=== PATIENT | male | born 1965 | race Caucasian/White ===

== ENCOUNTER 2017-04-06 11:39 | Emergency (ER) | payer MEDICARE, MEDICAID ==
[~2017-04-06] VITALS: Ht 185.4 cm; Wt 77.3 kg
[~2017-04-06 11:39] MED LIST: BUPR100T6 PO
[2017-04-06 11:53] VITALS: BP 154/99; PULSE 70; RESP 15; O2SAT 100
--- NOTE | 2017-04-06 11:58 | ED.REPORT ---
HPI-Abd Pain M 40 and Over Date of Service Apr 06, 2017 ED Provider: 51 y/o male with no pertinent hx presents to the ED complaining of sudden, sharp and non-radiating right flank pain, onset last night. The pt denies any trauma to the back, nausea, vomiting, fever and hematuria. He has never experienced similar sx before. Nursing Notes Stated Complaint: SEVERE ABDOMINAL PAIN Chief Complaint: Male Abdominal Pain Nursing Notes Reviewed: Yes Allergies: Coded Allergies: No Known Allergies (Verified , 02/07/15) Scheduled Fluoxetine (Prozac) 10 Mg Capsule 10 MG PO DAILY Lidocaine (Lidoderm) 700 Mg Adh..patch 1 PATCH TP UD Scheduled PRN Cyclobenzaprine (Cyclobenzaprine) 10 Mg Tablet 10 MG PO BID PRN PRN Spasm Naproxen (Naprosyn) 500 Mg Tablet 500 MG PO BID PRN PRN For Pain General Time Seen by MD: 11:57 Chief Complaint Flank pain right Hx Obtained From: Patient Arrived By: Walk-in Sudden in Onset?: Yes Onset Occurred: Yesterday Symptom Duration: Since onset Progression since Onset: Constant Location: : Flank right Quality: Sharp Radiation: : Does not radiate Severity: Current: Moderate Severity: Maximum: Moderate Associated with: Denies: Chest pain, Constipation, Diarrhea, Dysuria, Fever, Hematuria, Urinary frequency, Urinary retention, Urinary tract symptoms, Vomiting Pertinent Negative: Pt denies other symptoms Recent Healthcare: No recent doctor visit Similar Sx Previous: No Risk Factors )( AAA Risk Stratification Risk factors reviewed CAD Risk Stratification Amphetamine Risk factors reviewed TAD Risk Stratification Risk factors reviewed Past Medical History Past Medical History MRSA Cellulitis Hx. of opioid dependence Methaphetamine use disorder Past Surgical History Neck surgery Smoking History Current Every Day Smoker Social History Alcohol Use: Denies alcohol use Drug Use: Meth, Other Other Social History: Local resident Ambulatory Status Independent Review of Systems Constitutional: Denies: Chills, Fever Respiratory: Denies: Shortness of breath Cardiovascular: Denies: Chest pain GI: Denies: Abdominal pain Male: Reports Flank pain Complete sys rev & neg: except as marked. Physical Exam Initial Vital Signs Vital Signs (First) Date Time Temp Pulse Resp B/P Pulse Ox O2 Delivery O2 Flow Rate FiO2 04/06/17 11:53 36.6 70 15 154/99 100 Room Air Initial VS: Reviewed General/Constitutional: Awake, Alert, Well hydrated, Not toxic appearing Distress / Hydration: Positive: Distress mild Appearance / Presentation: Positive: Appears older than age Respiratory / Chest: Breath sounds NL, Breath sounds = bilat, No respiratory distress Cardiovascular: Heart rate NL, Regular rhythm, Heart sounds NL Abdomen: Soft, Non-tender, No rebound, BS normoactive Flank / Spine / Paraspinal: Positive: Flank tender R, Negative: Lumbar paraspinal tend..., Lumbar spine tender... ENT: Airway patent, Mucous membranes moist Neck: Supple, No adenopathy Interpretation & Diagnostics Lab Results Interpretation Result Diagram: 04/06/17 1207 04/06/17 1207 Test 04/06/17 12:00 04/06/17 12:07 Urine Color Yellow (YELLOW) Urine Appearance Clear (CLEAR,HAZY) Urine pH 6.0 (5.0-8.0) Urine Specific Anthony 1.025 (1.003-1.035) Urine Protein 30mg/dL (NEG,TRACE) Urine Glucose (UA) Negativemg/dL (NEGATIVE) Urine Ketones 15mg/dL (NEGATIVE) Urine Occult Blood Negative (NEGATIVE) Urine Nitrite Negative (NEGATIVE) Urine Bilirubin Negative (NEGATIVE) Urine Urobilinogen Normalmg/dL (NORMAL) Urine Leukocyte Esterase Negative (NEGATIVE) Urine RBC 3-10/hpf (0-2) Urine WBC 0-5/hpf (0-5) Urine Epithelial Cells Occasional/hpf (NONE-MOD) Urine Crystals None seen (NONE SEEN) Urine Bacteria Few/hpf (NONE-FEW) Urine Hyaline Casts None/lpf (NONE) Urine Granular Casts None seen (NONE SEEN) Urine Waxy Casts None seen (NONE SEEN) Urine Red Blood Cell Casts None seen (NONE SEEN) Urine White Blood Cell Casts None seen (NONE SEEN) Urine Mucus Present (None Seen) Urine Trichomonas None seen (NONE SEEN) Urine Yeast None (NONE SEEN) Urinalysis Comment None Urine Culture Reflexed Not indicated White Blood Count 10.7th/mm3 (3.8-10.1) Red Blood Count 4.14mil/mm3 (4.40-5.80) Hemoglobin 11.2g/dL (13.8-17.2) Hematocrit 34.7% (41.0-50.0) Mean Corpuscular Volume 83.8fL (81-100) Mean Corpuscular Hemoglobin 27.1pg (27.0-35.0) Mean Corpuscular Hemoglobin Concent 32.3% (32.0-37.0) Red Cell Distribution Width 14.0% (12.3-15.4) Platelet Count 240bil/L (150-400) Neutrophils (%) (Auto) 72.9% (40-74) Lymphocytes (%) (Auto) 16.0% (14-46) Monocytes (%) (Auto) 10.1% (4-12) Eosinophils (%) (Auto) 0.7% (0-5) Basophils (%) (Auto) 0.1% (0-3) Sodium Level 139mEq/L (134-144) Potassium Level 4.1mEq/L (3.5-5.2) Chloride Level 104mEq/L (97-108) Carbon Dioxide Level 23mmol/L (18-29) Blood Urea Nitrogen 20mg/dL (6-24) Creatinine 0.81mg/dL (0.76-1.27) Estimat Glomerular Filtration Rate 107mL/min (>59) Glucose Level 110mg/dL (60-99) Calcium Level 9.3mg/dL (8.5-10.1) Total Bilirubin 0.3mg/dL (0.0-1.2) Aspartate Amino Transf (AST/SGOT) 51U/L (0-50) Alanine Aminotransferase (ALT/SGPT) 26U/L (0-44) Alkaline Phosphatase 75U/L (25-150) Total Protein 8.2g/dL (6.4-8.4) Albumin 4.1g/dL (3.4-5.0) CT Abd / Pelvis Interpretation Patient Name: BERNY YOUNG MR#: [id number] [place] [facility] [place] Phys: Bhavik Gutierrez PAC Date of Service: 04/06/17 1204 PROCEDURE: CT KUB ([id number]) INDICATIONS: R flank pain TECHNIQUE: Noncontrast 5 mm thick sections acquired from the diaphragms to the symphysis. 5 mm thick coronal and sagittal reformats were then performed. For radiation dose reduction, the following was used: automated exposure control, adjustment of mA and/or kV according to patient size. COMPARISON: None. FINDINGS: Image quality: Excellent. Lung bases: There is subcentimeter ill-defined groundglass nodularity seen in the left lower lobe, image 5 series 3 which is most likely postinflammatory although technically indeterminate. Heart size is normal. Urinary system: Both kidneys are normal in size. No kidney stones. No hydronephrosis or perinephric fat stranding. Both ureters appear non-dilated throughout their expected courses. Bladder wall thickness is normal; no calcified bladder stones. Other solid organs: Liver and spleen are normal in size. Gallbladder negative. Pancreas is normal in contours. No adrenal nodules. Peritoneum and bowel: Unenhanced bowel loops demonstrate normal wall thickness and caliber. No free fluid or air. The appendix appears normal. The rectum is grossly unremarkable. No evidence of acute diverticulitis. Nodes and vessels: No retroperitoneal or mesenteric adenopathy by size criteria. Aorta and inferior vena cava are normal in caliber. Abdominal wall: No ventral hernias. Pelvis: No free pelvic fluid. No inguinal hernias or adenopathy. Bones: No suspicious bony lesions. No vertebral body compression fractures. IMPRESSION: Overall, no acute abnormality to explain right-sided flank pain. No urolithiasis or evidence of urinary obstruction. Normal appendix. Dictated by: Poli Vasquez M.D. on 04/06/2017 at 13:05 Approved by: Poli Vasquez M.D. on 04/06/2017 at 13:10 Re-Eval/Medical Decision Med Decision/Clinical Course Pt's pain slightly improved with IV Toradol. Labs and CT without any significant findings. Pain is more likely musculoskeletal. Discussed with Pt. s/s for which to return to ED, and need to f/u with PCP on 04/09. He acknowledged understanding of plan. Case discussed with Dr. Ram who concurs with plan at present. Counseled Regarding: Diagnosis, Lab results, Need for follow-up, When/why to return to ED Discharge & Departure Primary Impression: Right flank pain Disposition: Home Vital Signs - All Vital Signs Date Time Temp Pulse Resp B/P Pulse Ox O2 Delivery O2 Flow Rate FiO2 04/06/17 13:41 36.7 66 18 149/89 100 Room Air 04/06/17 11:53 36.6 70 15 154/99 100 Room Air Patient Instructions: Back Pain (ED) Additional Instructions: Rest, local heat, take meds as prescribed. Follow up with your doctor on Sunday , 04/09. Return to ER if anything worsens. Referrals: Ashleigh Arizmendi MD EDSupervising Provider for APC: Hodan Ram MD copies to: Ashleigh Arizmendi MD, Christopher R PAC Apr 06, 2017 11:58 Felipe Culver Apr 06, 2017 12:28
[2017-04-06] MEDS ORDERED: 0.9% Sodium Chloride 1,000 ML IV ONE (12:04)
[2017-04-06] MEDS ORDERED: FLUO10CA30 PO (12:31)
[2017-04-06 12:35] LABS: Mean Corpuscular Hemoglobin 27.1 pg (27.0-35.0)
[2017-04-06 12:38] LABS: APPEARANCE,URINE CLEAR (CLEAR,HAZY); COLOR,URINE YELLOW (YELLOW)
[2017-04-06 12:39] LABS: OCCULT BLOOD,URINE NEGATIVE (NEGATIVE); UROBILINOGEN,URINE NORMAL (NORMAL)
[2017-04-06 12:57] LABS: BASOPHILS % (AUTO) 0.1 % (0-3); EOSINOPHILS % (AUTO) 0.7 % (0-5); MONOCYTES % (AUTO) 10.1 % (4-12); Mean Corpuscular Volume 83.8 fL (81-100); NEUTROPHILS % (AUTO) 72.9 % (40-74); Platelet Count 240 bil/L (150-400)
--- NOTE | 2017-04-06 13:11 | DRSVH ---
PROCEDURE: CT KUB ([id number]) INDICATIONS: R flank pain TECHNIQUE: Noncontrast 5 mm thick sections acquired from the diaphragms to the symphysis. 5 mm thick coronal an d sagittal reformats were then performed. For radiation dose reduction, the following was used: aut omated exposure control, adjustment of mA and/or kV according to patient size. COMPARISON: None. FINDINGS: Image quality: Excellent. Lung bases: There is subcentimeter ill-defined groundglass nodularity seen in the left lower lobe, im age 5 series 3 which is most likely postinflammatory although technically indeterminate. Heart size is normal. Urinary system: Both kidneys are normal in size. No kidney stones. No hydronephrosis or perinephri c fat stranding. Both ureters appear non-dilated throughout their expected courses. Bladder wall th ickness is normal; no calcified bladder stones. Other solid organs: Liver and spleen are normal in size. Gallbladder negative. Pancreas is normal in contours. No adrenal nodules. Peritoneum and bowel: Unenhanced bowel loops demonstrate normal wall thickness and caliber. No free fluid or air. The appendix appears normal. The rectum is grossly unremarkable. No evidence of acute diverticulitis. Nodes and vessels: No retroperitoneal or mesenteric adenopathy by size criteria. Aorta and inferior vena cava are normal in caliber. Abdominal wall: No ventral hernias. Pelvis: No free pelvic fluid. No inguinal hernias or adenopathy. Bones: No suspicious bony lesions. No vertebral body compression fractures. IMPRESSION: Overall, no acute abnormality to explain right-sided flank pain. No urolithiasis or evidence of urina ry obstruction. Normal appendix. Dictated by: Poli Vasquez M.D. on 04/06/2017 at 13:05 Approved by: Poli Vasquez M.D. on 04/06/2017 at 13:10
[2017-04-06 13:41] VITALS: BP 149/89; PULSE 66; RESP 18; O2SAT 100
[2017-04-06] MEDS ORDERED: NAPR500T PO (14:00)
[2017-04-06] MEDS ORDERED: LIDO700A6 TP (14:00)
[2017-04-06] MEDS ORDERED: CYCL10TA9 PO (14:00)
== END 2017-04-06 14:07 | disposition home or self-care (01) ==
LOC: SED 11:39
DX: R10.9 Unspecified abdominal pain (principal); F17.200 Nicotine dependence, unspecified, uncomplicated; Z79.899 Other long term (current) drug therapy
CPT/HCPCS: 36415; 74176; 80053; 81000; 85025; 96361; 96374; 99285; J1885; J7030

== ENCOUNTER 2017-04-07 04:10 | Emergency (ER) | payer MEDICARE, MEDICAID ==
[~2017-04-07] VITALS: Ht 185.4 cm; Wt 77.3 kg
[~2017-04-07 04:10] MED LIST changes: +CYCL10TA9 PO; +FLUO10CA30 PO; +LIDO700A6 TP; +NAPR500T PO
[2017-04-07 04:14] VITALS: BP 155/79; PULSE 61; RESP 16; O2SAT 100
[2017-04-07 06:18] VITALS: BP 144/88; PULSE 58; RESP 18; O2SAT 100
--- NOTE | 2017-04-07 06:20 | ED.REPORT ---
HPI-Back Pain 40 and Over Date of Service Apr 07, 2017 ED Provider: Derrick Arnett MD Patient is a 51 year old male with a history of hepatitis C, cellulitis, MRSA and opioid dependence who presents to the ED complaining of back pain that began 2 nights ago. He denies any recent injury. The pain is exacerbated by movement and bending. He describes a sharp pain that radiates to his abdomen. Patient was seen in the ED on 04/06 for right sided back pain and was discharged in good condition after receiving IV Toradol and an unremarkable CT KUB. UA was negative for blood and WBC was 10.7. Patient states that he was unable to fill the cyclobenzaprine, naproxen or lidocaine patch last night and presents to the ED this morning because of uncontrollable pain. He denies any weakness in his legs, numbness in the groin or bowel/bladder incontinence. Patient denies any previous back surgeries. Nursing Notes Stated Complaint: LOW BACK PAIN Chief Complaint: Back Pain or Injury Nursing Notes Reviewed: Yes Allergies: Coded Allergies: No Known Allergies (Verified , 02/07/15) Scheduled Fluoxetine (Prozac) 10 Mg Capsule 10 MG PO DAILY Lidocaine (Lidoderm) 700 Mg Adh..patch 1 PATCH TP UD Scheduled PRN Cyclobenzaprine (Cyclobenzaprine) 10 Mg Tablet 10 MG PO BID PRN PRN Spasm Naproxen (Naprosyn) 500 Mg Tablet 500 MG PO BID PRN PRN For Pain General Time Seen by MD: 06:13 Chief Complaint Back pain Hx Obtained From: Patient Arrived By: Walk-in Sudden in Onset?: No Onset Occurred: 1 day ago Symptom Duration: Since onset Location: : Spinal lumbar area Quality: Painful, Sharp Radiation: : Abdomen Severity: Current: Moderate Severity: Maximum: Moderate Associated with: Denies: Incontinence bladder, Incontinence bowel, Numbness both low ext, Weakness both lower ext Pertinent Negative: Pt denies other symptoms Recent Healthcare: No recent hospitalization, Recent doctor visit Risk Factors )( AAA Risk Stratification Risk factors reviewed )( TAD Risk Stratification Risk factors reviewed Past Medical History Past Medical History MRSA Hepititis C Depression Cellulitis Hx. of opioid dependence Methaphetamine use disorder Past Surgical History Neck surgery Smoking History Current Every Day Smoker Social History Alcohol Use: Denies alcohol use Drug Use: Meth, THC, Other Other Social History: Local resident Ambulatory Status Independent Review of Systems Male: Denies Incontinence Musculoskeletal: Reports: Back pain (Lower) Neurologic: Denies: Numbness, Weakness Complete sys rev & neg: except as marked. Physical Exam Initial Vital Signs Vital Signs (First) Date Time Temp Pulse Resp B/P Pulse Ox O2 Delivery O2 Flow Rate FiO2 04/07/17 04:14 36.9 61 16 155/79 100 Room Air Initial VS: Reviewed Head / Eyes: Atraumatic, Normocephalic, PERRL Neck: Supple, Non-tender, Full range of motion Extremities: Vascular intact, Neuro intact, No swelling, No tenderness Skin: Warm, Dry, No cyanosis Psychiatric: Mood/affect normal, Behavior normal, Normal thought content General/Constitutional: Awake, Alert Respiratory / Chest: Atraumatic, Breath sounds NL, Breath sounds = bilat, No respiratory distress Cardiovascular: Heart rate NL, Regular rhythm, Heart sounds NL, No gallop, No murmurs, No rubs Abdomen: Atraumatic, Soft, Non-tender, No distention Back: Atraumatic, Inspection NL, No midline vertebral tend, No paraspinal tenderness, No CVA tenderness BACK: Patient reports diffuse paraspinal lumbar pain Strength and sensation intact No step off's Neurologic: Oriented X3, Speech NL, No motor deficits, No sensory deficits, CN II - XII intact, Reflexes equal bilat Re-Eval/Medical Decision Med Decision/Clinical Course In summary, the patient is a 51-year-old male with past medical history significant for back pain, who presents with acute back pain exacerbation. He was just recently seen here and evaluated in this emergency department at which time he had a CT scan was unremarkable. He was prescribed NSAIDs and muscle relaxants however he has not filled these prescriptions due to insurance issues. Our primary and secondary assessment reveals an awake, alert patient in no acute distress. Hemodynamically stable and afebrile. Exam reveals normal neurologic exam of the lower extremities. Given this immunocompetent, afebrile, patient's history and exam, suspect muscle strain or spasm. No concerning signs or symptoms suggestive of cauda equina, cord compression, epidural abscess or other neurologic emergency. History not suggestive of referred intraabdominal pathology or vascular emergency. There is no history of significant trauma, fever, incontinence, unexplained weight loss, cancer history, long-term steroid use or IV drug use. And given the patient's young age, I do not feel additional imaging is warranted at this time. Given the patient's workup, feel they are safe for discharge with conservative management. The patient was given Toradol and a lidocaine patch while here in the ER. He will attempt to fill his prescriptions later today. Have discussed with the patient results of workup, indications for return including: motor weakness in the lower extremities and/or bowel or bladder incontinence. Also emphasized the need for PCP follow up. They understand and agree with the plan. Re-Evaluation/Progress : Time of Eval: 06:29 Re-Evaluation/Progress Note: Patient is rechecked. His pain has improved. Discussed intended treatment plan. All of the pateint's questions are addressed. He understands and agrees with the treatment plan. Counseled Regarding: Diagnosis, Need for follow-up, When/why to return to ED Discharge & Departure Impression: Primary Impression: Low back pain Chronicity: acute Back pain laterality: bilateral Sciatica presence: without sciatica Qualified Code: M54.5 - Low back pain Additional Impression: Noncompliance with medication regimen Disposition: Home Discharge Condition All VS Reviewed: Yes Condition: Improved Patient Instructions: Acute Low Back Pain (ED) Additional Instructions: Thank you for seeking care at emergency room. Our primary goal today in the ED was to evaluate you for any life-threatening conditions. Your evaluation was reassuring. Make sure to have your prescriptions filled as soon as possible,. You should follow-up with your primary doctor in the next week. You should return to the ED immediately if you develop worsening back pain, incontinence, fever, chills, weakness or any other concerning signs or symptoms. Thank you for seeking care at emergency room. Referrals: Ashleigh Arizmendi MD (PCP) Sonny Attestation Portions of this note were transcribed by Teri Howard. I, Dr. Arnett personally performed the history, physical exam and medical decision-making; I reviewed and confirmed the accuracy of the information in the transcribed note. Signed by: Sonny Carballo, 04/07/17 0647. copies to: Ashleigh Arizmendi MD, Beck O MD Apr 07, 2017 06:20 TERI HOWARD Apr 07, 2017 06:29
[2017-04-07] MEDS ORDERED: Lidocaine Topical 5% Patch TOPICAL SCH (06:35)
[2017-04-07 06:48] VITALS: BP 164/87; PULSE 58; RESP 16; O2SAT 99
[2017-04-07] MEDS ORDERED: Lidocaine Topical 5% Patch TOPICAL ONE (06:53)
== END 2017-04-07 07:02 | disposition home or self-care (01) ==
LOC: SED 04:10
DX: M54.5 Low back pain (principal); F32.9 Major depressive disorder, single episode, unspecified; F17.200 Nicotine dependence, unspecified, uncomplicated; Z91.14 Patient's other noncompliance with medication regimen; Z86.19 Personal history of other infectious and parasitic diseases; Z86.14 Personal history of Methicillin resistant Staphylococcus aureus infection
CPT/HCPCS: 96372; 99283; J1885

== ENCOUNTER 2017-04-09 05:39 | Emergency (ER) | payer MEDICAID, MEDICARE ==
[~2017-04-09 05:39] MED LIST changes: -BUPR100T6 PO
[2017-04-09 05:49] VITALS: BP 118/75; PULSE 97; RESP 20; O2SAT 99
--- NOTE | 2017-04-09 06:05 | ED.REPORT ---
HPI-Back Pain 40 and Over Date of Service Apr 09, 2017 ED Provider: Ariel Alva MD Pt is a 51 year old male with a history of slipped disc, hepatitis C, cellulitis , MRSA and opioid dependence who presents to the ED complaining of worsening chronic back pain onset 3 days ago. He c/o associated abdominal pain, subjective fever, difficulty walking secondary to the pain, and vomiting. He reports that the pain radiates to the back of his legs bilaterally. Pt denies injury, urinary and bowel incontinence, cough, chest pain, SOB, dysuria, and diarrhea. Pt states that when urinating, "it doesn't feel like I'm getting everything out." He states "I can't do anything" and that he is unable to ambulate to the bathroom. Pt reports that he urinates in a bucket next to his bed. The pt has been taking Naproxen and lidocaine patches without relief. Pt presented to the ED on 04/07/17 with similar symptoms and was diagnosed with low back pain. Nursing Notes Stated Complaint: LOW BACK PAIN Chief Complaint: General Complaint Nursing Notes Reviewed: Yes Allergies: Coded Allergies: No Known Allergies (Verified , 02/07/15) Scheduled Fluoxetine (Prozac) 10 Mg Capsule 10 MG PO DAILY Lidocaine (Lidoderm) 700 Mg Adh..patch 1 PATCH TP UD Scheduled PRN Cyclobenzaprine (Cyclobenzaprine) 10 Mg Tablet 10 MG PO BID PRN PRN Spasm Naproxen (Naprosyn) 500 Mg Tablet 500 MG PO BID PRN PRN For Pain General Time Seen by MD: 06:04 Chief Complaint Back pain Hx Obtained From: Patient Arrived By: Walk-in Sudden in Onset?: No Symptom Duration: Since onset Location: : Generalized Quality: Itching Radiation: : Abdomen: Left leg above knee: Right leg above knee Severity: Current: Moderate Severity: Maximum: Moderate Recent Healthcare: Recent doctor visit Similar Sx Previous: Yes Past Medical History Past Medical History Notes: Dr. Ashleigh Arizmendi, PCP Past Medical History MRSA Hepititis C Cellulitis Hx. of opioid dependence Methaphetamine use disorder Anxiety Slipped disc Denies: Congestive heart failure, Diabetes mellitus, Hypertension Reports: Depression Past Surgical History Neck surgery Reports: Tonsillectomy Smoking History Current Every Day Smoker Social History Alcohol Use: Denies alcohol use Drug Use: Meth, THC, Other Other Social History: , Local resident Ambulatory Status Independent Review of Systems Constitutional: Denies: Fever (subjective) Respiratory: Denies: Non-productive cough, Shortness of breath Cardiovascular: Denies: Chest pain GI: Reports: Abdominal pain, Nausea, Vomiting, Denies: Diarrhea Male: Denies Dysuria, Denies Incontinence (bowel or urinary) Musculoskeletal: Reports: Back pain, Extremity pain Neurologic: Reports: Problem walking (secondary to pain) Complete sys rev & neg: except as marked. Physical Exam Initial Vital Signs Vital Signs (First) Date Time Temp Pulse Resp B/P Pulse Ox O2 Delivery O2 Flow Rate FiO2 04/09/17 05:49 37.4 97 20 118/75 99 Room Air Initial VS: Reviewed Head / Eyes: Atraumatic, Normocephalic Neck: Supple, Full range of motion Skin: Warm, Dry, No cyanosis Psychiatric: Mood/affect normal, Behavior normal General/Constitutional: Awake, Alert, Cooperative Respiratory / Chest: Atraumatic, Breath sounds NL, Breath sounds = bilat Cardiovascular: Heart rate NL, Regular rhythm, Heart sounds NL Abdomen: Atraumatic, Soft RUQ abdominal pain and suprapubic pain. Back: Atraumatic, Full range of motion Neurologic: Oriented X3, Speech NL Lower Extremity / Pelvis / MS: Neurologic intact, Vascular intact Modified straight leg positive on right. Significant pain over right SI joint and sciatic notch pain. Interpretation & Diagnostics Lab Results Interpretation Result Diagram: 04/09/17 0642 04/09/17 0642 Test 04/09/17 06:42 04/09/17 08:23 White Blood Count 21.7th/mm3 (3.8-10.1) Red Blood Count 4.42mil/mm3 (4.40-5.80) Hemoglobin 12.0g/dL (13.8-17.2) Hematocrit 35.9% (41.0-50.0) Mean Corpuscular Volume 81.2fL (81-100) Mean Corpuscular Hemoglobin 27.1pg (27.0-35.0) Mean Corpuscular Hemoglobin Concent 33.4% (32.0-37.0) Red Cell Distribution Width 13.8% (12.3-15.4) Platelet Count 313bil/L (150-400) Neutrophils (%) (Auto) 76% (40-74) Lymphocytes (%) (Auto) 10% (14-46) Monocytes (%) (Auto) 10% (4-12) Eosinophils (%) (Auto) 0% (0-5) Basophils (%) (Auto) 0% (0-3) Band Neutrophils % 4% (1-5) Sodium Level 128mEq/L (134-144) Potassium Level 4.7mEq/L (3.5-5.2) Chloride Level 87mEq/L (97-108) Carbon Dioxide Level 26mmol/L (18-29) Blood Urea Nitrogen 16mg/dL (6-24) Creatinine 0.63mg/dL (0.76-1.27) Estimat Glomerular Filtration Rate 143mL/min (>59) Glucose Level 148mg/dL (60-99) Calcium Level 9.3mg/dL (8.5-10.1) Total Bilirubin 0.6mg/dL (0.0-1.2) Aspartate Amino Transf (AST/SGOT) 29U/L (0-50) Alanine Aminotransferase (ALT/SGPT) 18U/L (0-44) Alkaline Phosphatase 115U/L (25-150) Total Protein 7.9g/dL (6.4-8.4) Albumin 3.7g/dL (3.4-5.0) Urine Color Yellow (YELLOW) Urine Appearance Clear (CLEAR,HAZY) Urine pH 6.0 (5.0-8.0) Urine Specific [place] 1.015 (1.003-1.035) Urine Protein 30mg/dL (NEG,TRACE) Urine Glucose (UA) Negativemg/dL (NEGATIVE) Urine Ketones Tracemg/dL (NEGATIVE) Urine Occult Blood Trace (NEGATIVE) Urine Nitrite Negative (NEGATIVE) Urine Bilirubin Negative (NEGATIVE) Urine Urobilinogen Normalmg/dL (NORMAL) Urine Leukocyte Esterase Negative (NEGATIVE) Urine RBC 3-10/hpf (0-2) Urine WBC 0-5/hpf (0-5) Urine Epithelial Cells Occasional/hpf (NONE-MOD) Urine Crystals None seen (NONE SEEN) Urine Bacteria None/hpf (NONE-FEW) Urine Hyaline Casts Occasional/lpf (NONE) Urine Granular Casts Occasional (NONE SEEN) Urine Waxy Casts None seen (NONE SEEN) Urine Red Blood Cell Casts None seen (NONE SEEN) Urine White Blood Cell Casts None seen (NONE SEEN) Urine Mucus Present (None Seen) Urine Trichomonas None seen (NONE SEEN) Urine Yeast None (NONE SEEN) Urinalysis Comment None Urine Culture Reflexed Not indicated Re-Eval/Medical Decision Med Decision/Clinical Course other than the elevated WBC count, no evidence of infection and an exam completely consistent with a musculoskelital pain. I recommmend close out patient follow-up. 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 Source of Hx: Old records Re-Evaluation/Progress : Time of Eval: 09:02 Re-Evaluation/Progress Note: Pt rechecked. Informed pt of lab results. Informed pt of plan for discharge. Pt understands and agrees with plan for discharge. F/U instructions and RTER warnings given. All questions addressed. Counseled Regarding: Diagnosis, Lab results, Need for follow-up, When/why to return to ED Discharge & Departure Impression: Primary Impression: Back pain Back pain location: low back pain Chronicity: acute Back pain laterality: right Sciatica presence: with sciatica Sciatica laterality: sciatica of right side Qualified Code: M54.41 - Lumbago with sciatica, right side Disposition: Home Discharge Condition All VS Reviewed: Yes Condition: Stable Patient Instructions: Acute Low Back Pain (ED) Additional Instructions: No dangerous cause for your pain was discovered today. I think that your pain is likely from the muscles, joints or connective tissues of the back as opposed to the internal organs. I am moderately concerned about the elevated WBC count and think you should see Dr. Arizmendi in 2-3 days for follow up. Come right back to the ER for fever or worsening symptoms. If you are feeling worse, you may need an MRI with IV contrast to exclude an infection in your spine, but i don't think this very likely at this time given your normal Vital signs and your symptoms which are consistent with more common back pain. For now I recommend that you take ibuprofen 800mg every 8 hours and hydrocodone/ APAP as needed for more severe pain. Referrals: Ashleigh Arizmendi MD (PCP) Ireneibfidel Attestation Portions of this note were transcribed by Yancy Moya. I, Dr. Alva personally performed the history, physical exam and medical decision-making; I reviewed and confirmed the accuracy of the information in the transcribed note. Signed by: Sonny Stein, 04/09/17 and 09:30. copies to: Ashleigh Arizmendi MD, Kirk H MD Apr 09, 2017 06:05 Yancy Hardy Apr 09, 2017 06:33
[2017-04-09] MEDS ORDERED: HYDROcodone-APAP 5-325 mg Tablet PO ONE (06:35)
[2017-04-09 07:00] LABS: EOSINOPHILS % (AUTO) 0 % (0-5); Mean Corpuscular Hemoglobin 27.1 pg (27.0-35.0); Mean Corpuscular Volume 81.2 fL (81-100); Platelet Count 313 bil/L (150-400)
[2017-04-09 08:21] LABS: MONOCYTES % (AUTO) 10 % (4-12); NEUTROPHILS % (AUTO) 76 % (40-74)
[2017-04-09 08:22] LABS: BASOPHILS % (AUTO) 0 % (0-3)
[2017-04-09 08:56] LABS: APPEARANCE,URINE CLEAR (CLEAR,HAZY); COLOR,URINE YELLOW (YELLOW); OCCULT BLOOD,URINE TRACE (NEGATIVE); UROBILINOGEN,URINE NORMAL (NORMAL)
[2017-04-09] MEDS ORDERED: HYDR-4003 PO (09:18)
[2017-04-09 09:24] VITALS: BP 136/78; PULSE 75; RESP 18; O2SAT 100
== END 2017-04-09 09:24 | disposition home or self-care (01) ==
LOC: SED 05:39
DX: M54.41 Lumbago with sciatica, right side (principal); G89.29 Other chronic pain; F41.9 Anxiety disorder, unspecified; F19.10 Other psychoactive substance abuse, uncomplicated; F32.9 Major depressive disorder, single episode, unspecified; Z79.899 Other long term (current) drug therapy
CPT/HCPCS: 36415; 80053; 81000; 85025; 96372; 99284; J1885

== ENCOUNTER 2017-04-11 06:08 | Inpatient (IN) | payer MEDICARE, MEDICAID ==
[~2017-04-11] VITALS: Ht 185.4 cm; Wt 92.7 kg
[~2017-04-11 06:08] MED LIST changes: +HYDR-4003 PO
[2017-04-11 06:10] VITALS: BP 122/78; PULSE 95; RESP 20; O2SAT 97
--- NOTE | 2017-04-11 06:22 | ED.REPORT ---
HPI-Back Pain 40 and Over Date of Service Apr 11, 2017 ED Provider: Phililp Farah DO The pt is a 51 y/o male w/ a hx of Hepatitis C, cellulitis, MRSA, and IV methamphetamine use presenting to the ED complaining of severe pain and swelling in the R lumbar and R gluteal area. He is also experiencing an aching pain in his abdomen, chills, and vomiting. Denies fever, diarrhea, or incontinence. The pt reports last injecting meth yesterday. He has been to the ED three times in the last week for back pain. Nursing Notes Stated Complaint: LOWER BACK PAIN Chief Complaint: Back Pain or Injury Nursing Notes Reviewed: Yes Allergies: Coded Allergies: No Known Allergies (Verified , 02/07/15) Scheduled PRN Hydrocodone-Acetaminophen 5-325 mg (Hydrocodone-Acetaminophen 5-325 mg) 1 Each Tablet 1-2 TABLET PO Q4H PRN PRN For Pain General Time Seen by MD: 06:18 Chief Complaint Back pain Hx Obtained From: Patient Arrived By: Walk-in Sudden in Onset?: Yes Symptom Duration: Since onset Recent Healthcare: No recent hospitalization, Recent doctor visit Similar Sx Previous: Yes Past Medical History Past Medical History Notes: Dr. Ashleigh Arizmendi, PCP Past Medical History MRSA Hepititis C Cellulitis Hx. of opioid dependence Methaphetamine use disorder Anxiety Slipped disc Reports: Depression Past Surgical History Neck surgery Reports: Tonsillectomy Smoking History Current Every Day Smoker Social History Alcohol Use: Denies alcohol use Drug Use: Meth, THC, Other Other Social History: , Local resident Ambulatory Status Independent Review of Systems Constitutional: Reports: Chills, Denies: Fever GI: Reports: Abdominal pain, Vomiting, Denies: Diarrhea Male: Denies Incontinence Musculoskeletal: Reports: Back pain, Joint pain (R hip ), Joint swelling (R hip ) Complete sys rev & neg: except as marked. Physical Exam Initial Vital Signs Vital Signs (First) Date Time Temp Pulse Resp B/P Pulse Ox O2 Delivery O2 Flow Rate FiO2 04/11/17 06:10 37.0 95 20 122/78 97 Room Air Initial VS: Reviewed General/Constitutional: Awake, Alert Distress / Hydration: Positive: Distress moderate Respiratory / Chest: Atraumatic, Breath sounds NL, Breath sounds = bilat Cardiovascular: Heart rate NL, Regular rhythm, Heart sounds NL Abdomen: Atraumatic, Soft, Non-tender Flank / Spine / Paraspinal: Positive: Flank tender R Tenderness of R paralumbar area Neurologic: Oriented X3, Speech NL Neck: Atraumatic, Supple, Full range of motion Lower Extremity / Pelvis / MS: No deformity, Neurologic intact, Vascular intact Right Hip: Positive: ROM reduced... Head / Eyes: Atraumatic, Normocephalic ENT: Atraumatic, Airway patent, Mucous membranes moist Interpretation & Diagnostics Lab Results Interpretation Result Diagram: 04/11/17 0655 04/11/17 0655 Test 04/11/17 06:55 04/11/17 09:31 White Blood Count 36.4th/mm3 (3.8-10.1) Red Blood Count 4.32mil/mm3 (4.40-5.80) Hemoglobin 11.8g/dL (13.8-17.2) Hematocrit 34.7% (41.0-50.0) Mean Corpuscular Volume 80.3fL (81-100) Mean Corpuscular Hemoglobin 27.3pg (27.0-35.0) Mean Corpuscular Hemoglobin Concent 34.0% (32.0-37.0) Red Cell Distribution Width 14.2% (12.3-15.4) Platelet Count 305bil/L (150-400) Neutrophils (%) (Auto) 60% (40-74) Lymphocytes (%) (Auto) 7% (14-46) Monocytes (%) (Auto) 6% (4-12) Eosinophils (%) (Auto) 0% (0-5) Basophils (%) (Auto) 0% (0-3) Band Neutrophils % 27% (1-5) Erythrocyte Sedimentation Rate 48mm/hr (0-15) Sodium Level 132mEq/L (134-144) Potassium Level 4.2mEq/L (3.5-5.2) Chloride Level 90mEq/L (97-108) Carbon Dioxide Level 25mmol/L (18-29) Blood Urea Nitrogen 18mg/dL (6-24) Creatinine 0.84mg/dL (0.76-1.27) Estimat Glomerular Filtration Rate 103mL/min (>59) Glucose Level 123mg/dL (60-99) Calcium Level 8.5mg/dL (8.5-10.1) C-Reactive Protein 32.1mg/dL (0.0-0.5) Procalcitonin 2.62ng/mL (0.00-0.08) Lactic Acid Level 2.0mmol/L (0.4-2.0) CT Abd / Pelvis Interpretation IMPRESSION: 1. Bilateral perinephric stranding suggesting pyelonephritis. No renal stone or hydronephrosis. 2. Mild stranding in the area of the tail of the pancreas, which may be secondary to spread of inflammation/infection from the left kidney or focal pancreatitis. 3. Small right pleural effusion. 4. Trace pericardial effusion. 5. The right gluteus muscle is enlarged and demonstrates low attenuation with somewhat heterogeneous enhancement suggesting myositis. 6. Subcutaneous edema and fluid over right gluteus muscle. There is a small fluid collection over the right greater trochanter which could represent septic greater trochanteric bursal fluid. Ultrasound-guided fluid aspiration may be performed if clinically indicated. 7. Mild hepatomegaly. Dictated by: Amanda Méndez M.D. on 04/11/2017 at 8:31 Approved by: Amanda Méndez M.D. on 04/11/2017 at 8:52 Study type: Abdom CT oral contrast Interpretation / Wet Read by: Interpret - Radiologist Re-Eval/Medical Decision Med Decision/Clinical Course History of IV drug abuse, multiple visits recently for back pain. He does not have bony midline lumbar tenderness, he does localize his pain over the right gluteal area and seems to have pain to palpation of the area. It is visibly swollen. Strongly suspect a deep space infection to the gluteal area. CT shows signs of infection, radiology attempted to perform ultrasound-guided needle aspiration but stated there was no significant fluid collection to drain. We will plan to admit. Given history of IV drug abuse in the location for infection, 3 sets of blood cultures were obtained as this may represent endocarditis. Patient will be admitted. Source of Hx: Old records Re-Evaluation/Progress : Time of Eval: 08:53 Re-Evaluation/Progress Note: Pt rechecked. Discussed CT results and plan for US. Consultation #1: Referral / Consult Name: Juna Vega MD Call Returned at: 09:07 Note: Discussed pt's case. recommends starting antibiotics as soon as possible, agrees with scheduling a guided aspiration. Consultation #2: Referral / Consult Name: Lisa Downey MD Consulted With: Hospitalist Call Returned at: 09:29 Tap Builder: Will see patient, Agrees with eval, Agrees with plan, Accepts admit Consultation #3: Referral / Consult Name: Amanda Méndez MD, PhD Call Returned at: 10:03 Note: Discussed imaging results w/ Dr. Méndez, radiologist. They report being unable to tap the hip joint or gluteal area and that there was no drainable fluid collection. Based on US and CT they dont see significant fluid in the joint capsule. Does not see benefit in obtaining MRI at this time. Counseled Regarding: Diagnosis, Lab results, Need for admission Discharge & Departure Impression: Primary Impression: Gluteal abscess Additional Impression: Sepsis Disposition: ADMITTED TO HOSPITAL Discharge Condition All VS Reviewed: Yes Condition: Stable Referrals: Ashleigh Arizmendi MD (PCP) Crit Care Except Billable Proc Time Spent: 75-104 minutes Services Performed: Patient management by me, Time spent at bedside, Reviewing test results, Reviewing imaging, Discussing patient care, Documentation in record Critical Care Notes: See MDM Scribe Attestation Portions of this note were transcribed by Marshall Kenyon. I, Dr. Echols personally performed the history, physical exam and medical decision-making; I reviewed and confirmed the accuracy of the information in the transcribed note. Signed by : Sonny Moore, 04/11/17 and 0130. copies to: Ashleigh Arizmendi MD, Timothy S DO Apr 11, 2017 06:22 Marshall Kenyon Apr 11, 2017 07:02
[2017-04-11] MEDS ORDERED: 0.9% Sodium Chloride 1,000 ML IV SCH ×2 (07:15→09:29)
[2017-04-11 07:31] LABS: Mean Corpuscular Hemoglobin 27.3 pg (27.0-35.0); Mean Corpuscular Volume 80.3 fL (81-100); Platelet Count 305 bil/L (150-400)
[2017-04-11] MEDS ORDERED: Piperacillin-Tazo 3.375 Gm Inj 3.375 GM in Dextrose 5% Minibag Plus 50 ML IV ONE (08:40)
--- NOTE | 2017-04-11 08:54 | DRSVH ---
PROCEDURE: CT ABDOMEN AND PELVIS WITH CONTRAST ([id number]) INDICATIONS: pain, leukocytosis, gluteal/lumbar pain TECHNIQUE: After the administration of intravenous contrast, 5 mm thick sections acquired from the diaphragm to the symphysis. 5 mm coronal and sagittal reformats were acquired. For radiation dose reduction, the following was used: automated exposure control, adjustment of mA and/or kV according to patient siz e. COMPARISON: [facility], CT, ABD/PELVIS W/CON (PNL), 02/18/2002, 11:02. [facility], CT, CT KUB, 04/06/2017, 12:54. [facility], CT, ABD/PELVIS W/CON (PNL), 02/23/2015, 6:59. FINDINGS: Image quality: Excellent. ABDOMEN: Lung bases: There is a small right pleural effusion with right basilar atelectasis. A 7 mm subpleura l nodule in the left lung base is likely small round atelectasis. Heart size is normal. Trace perica rdial effusion. Solid organs: Liver is mildly enlarged measuring 20.3 cm. Spleen is normal in size and enhancement. Gallbladder is normal. Biliary system is non dilated. Mild stranding around the pancreatic tail. No pancreatic duct dilation. No pancreatic calcification or pseudocyst. No adrenal nodules. Kidneys de monstrate normal size and enhancement, without hydronephrosis. There is mild perinephric stranding b ilaterally. Peritoneum and bowel: Bowel loops demonstrate normal wall thickness and caliber. No free fluid or a ir. Nodes and vessels: No retroperitoneal or mesenteric adenopathy by size criteria. Aorta and inferior vena cava are normal in size. Miscellaneous: No ventral hernias. PELVIS: Genitourinary: Bladder wall thickness is normal. Miscellaneous: No inguinal hernias or adenopathy. The right gluteus maximum muscle is enlarged and demonstrates slightly lower attenuation and heterogeneous enhancement. No intramuscular fluid collect ion. There is subcutaneous fluid and edema in the right upper thigh without enhancement. A small pock et of fluid is seen adjacent to the right greater trochanter No drainable abscess identified. Bones: No suspicious bony lesions. No vertebral body compression fractures. IMPRESSION: 1. Bilateral perinephric stranding suggesting pyelonephritis. No renal stone or hydronephrosis. 2. Mild stranding in the area of the tail of the pancreas, which may be secondary to spread of inflam mation/infection from the left kidney or focal pancreatitis. 3. Small right pleural effusion. 4. Trace pericardial effusion. 5. The right gluteus muscle is enlarged and demonstrates low attenuation with somewhat heterogeneous enhancement suggesting myositis. 6. Subcutaneous edema and fluid over right gluteus muscle. There is a small fluid collection over the right greater trochanter which could represent septic greater trochanteric bursal fluid. Ultrasound- guided fluid aspiration may be performed if clinically indicated. 7. Mild hepatomegaly. Dictated by: Amanda Méndez M.D. on 04/11/2017 at 8:31 Approved by: Amanda Méndez M.D. on 04/11/2017 at 8:52
[2017-04-11] MEDS ORDERED: Vancomycin Inj 1,500 MG in 0.9% Sodium Chloride 500 ML IV SCH ×2 (09:00→11:15)
[2017-04-11 09:02] LABS: BASOPHILS % (AUTO) 0 % (0-3); MONOCYTES % (AUTO) 6 % (4-12); NEUTROPHILS % (AUTO) 60 % (40-74)
[2017-04-11 09:03] LABS: EOSINOPHILS % (AUTO) 0 % (0-5)
[2017-04-11 09:30] LABS: ERYTHROCYTE SEDIMENTATION RATE 48 mm/hr (0-15)
[2017-04-11] MEDS ORDERED: Alum-Mag Hydrox-Simeth 30 mL Suspension PO PRN ×2 (09:30→17:05)
[2017-04-11] MEDS ORDERED: Ondansetron 2 mg/mL 2 mL Inj IVPUSH PRN ×2 (09:30→17:05)
[2017-04-11 10:37] VITALS: BP 121/80; PULSE 80; RESP 14; O2SAT 97
[2017-04-11 10:57] LABS: APPEARANCE,URINE HAZY (CLEAR,HAZY); COLOR,URINE STRAW (YELLOW); PH,URINE 6.5 (5.0-8.0)
[2017-04-11 10:58] LABS: OCCULT BLOOD,URINE TRACE (NEGATIVE); UROBILINOGEN,URINE NORMAL (NORMAL)
[2017-04-11 11:07] VITALS: BP 122/77; PULSE 79; PULSE 83; RESP 18; O2SAT 99
--- NOTE | 2017-04-11 11:15 | NUR ---
Admit Pt arrived on unit from ED and was able to slide himself from ED bed to unit bed. VS WNL. Patient was very hard to keep awake and would fall asleep mid-sentence but alert and oriented X4 when answering questions. Med rec completed by admit nurse. Pt arrived with unspiked bag of Vanco which was started on the unit(2nd dose of abx). Pt stated that he was unable to bare weight on right LE d/t gluteal pain. Right glute look mildly swollen with no redness or drainage. Pt stated that he has not had a BM since 04/06/17 and that used heroin last night which usually causes constipation. MD aware that pt is on unit.
--- NOTE | 2017-04-11 11:43 | DRSVH ---
PROCEDURE: US EXTREMITY SONOGRAM LIMITED ([id number]) INDICATIONS: right gluteal area TECHNIQUE: Real-time scanning was performed of the right, with image documentation. COMPARISON: [facility], CT, CT ABD PELVIS W CON, 04/11/2017, 8:15. Merged with [facility], US, EXTREMITY SONOGRAM LTD, 07/08/2013, 11:42. FINDINGS: There is marked soft tissue edema in the right gluteal area. No drainable fluid collection is identified. The patient is tender in the right thigh during examination. IMPRESSION: No drainable fluid collection is identified. There is diffuse soft tissue edema. Dictated by: Amanda Méndez M.D. on 04/11/2017 at 11:39 Approved by: Amanda Méndez M.D. on 04/11/2017 at 11:41
[2017-04-11] MEDS ORDERED: Polyethylene Glycol (PEG) 17 Gm Powder PO PRN (17:05)
[2017-04-11] MEDS: Vancomycin Dose per Pharmacist XX SCH (17:38)
[2017-04-11 17:41] VITALS: BP 115/77; PULSE 98; RESP 23; O2SAT 98
[2017-04-11] MEDS: Ketorolac 15 mg/mL Inj IVPUSH PRN ×2 (17:43→23:07)
[2017-04-11] MEDS: 0.9% Sodium Chloride 1,000 ML IV SCH ×2 (17:43→23:59)
[2017-04-11] MEDS: Heparin 5,000 Unit/mL Inj SUBQ SCH (17:51)
[2017-04-11 18:44] LABS: Magnesium 1.8 mg/dL (1.6-2.6)
[2017-04-11 19:33] VITALS: BP 110/71; PULSE 106; RESP 16; O2SAT 100
[2017-04-11] MEDS: Piperacillin-Tazo 3.375 Gm Inj 3.375 GM in Dextrose 5% Minibag Plus 50 ML IV SCH (19:35)
--- NOTE | 2017-04-11 19:37 | PCM.CONPHA ---
Subjective Reason for Pharmacy Consult: Vancomycin Dosing Objective Vital Signs Date Time Temp Pulse Resp B/P Pulse Ox O2 Delivery O2 Flow Rate FiO2 04/11/17 19:33 37.4 106 16 110/71 100 Room Air 04/11/17 17:41 37.9 98 23 115/77 98 Room Air 04/11/17 11:07 79 04/11/17 11:07 37.1 83 18 122/77 99 Room Air 04/11/17 10:37 37.1 80 14 121/80 97 Room Air 04/11/17 06:10 37.0 95 20 122/78 97 Room Air Weight (Kilograms): 74.000 Height (Feet): 6 Height (Inches): 1.00 Test 04/11/17 06:55 04/11/17 10:16 04/11/17 18:10 White Blood Count 36.4th/mm3 (3.8-10.1) Red Blood Count 4.32mil/mm3 (4.40-5.80) Hemoglobin 11.8g/dL (13.8-17.2) Hematocrit 34.7% (41.0-50.0) Mean Corpuscular Volume 80.3fL (81-100) Mean Corpuscular Hemoglobin 27.3pg (27.0-35.0) Mean Corpuscular Hemoglobin Concent 34.0% (32.0-37.0) Red Cell Distribution Width 14.2% (12.3-15.4) Platelet Count 305bil/L (150-400) Neutrophils (%) (Auto) 60% (40-74) Lymphocytes (%) (Auto) 7% (14-46) Monocytes (%) (Auto) 6% (4-12) Eosinophils (%) (Auto) 0% (0-5) Basophils (%) (Auto) 0% (0-3) Band Neutrophils % 27% (1-5) Erythrocyte Sedimentation Rate 48mm/hr (0-15) C-Reactive Protein 32.1mg/dL (0.0-0.5) Procalcitonin 2.62ng/mL (0.00-0.08) Urine Color Straw (YELLOW) Urine Appearance Hazy (CLEAR,HAZY) Urine pH 6.5 (5.0-8.0) Urine Specific [place] 1.005 (1.003-1.035) Urine Protein Tracemg/dL (NEG,TRACE) Urine Glucose (UA) Negativemg/dL (NEGATIVE) Urine Ketones Negativemg/dL (NEGATIVE) Urine Occult Blood Trace (NEGATIVE) Urine Nitrite Negative (NEGATIVE) Urine Bilirubin Negative (NEGATIVE) Urine Urobilinogen Normalmg/dL (NORMAL) Urine Leukocyte Esterase Negative (NEGATIVE) Urine RBC 3-10/hpf (0-2) Urine WBC 0-5/hpf (0-5) Urine Epithelial Cells Occasional/hpf (NONE-MOD) Urine Crystals Amorphous urates (NONE Urine Bacteria Few/hpf (NONE-FEW) Urine Hyaline Casts None/lpf (NONE) Urine Granular Casts None seen (NONE SEEN) Urine Waxy Casts None seen (NONE SEEN) Urine Red Blood Cell Casts None seen (NONE SEEN) Urine White Blood Cell Casts None seen (NONE SEEN) Urine Mucus None seen (None Seen) Urine Trichomonas None seen (NONE SEEN) Urine Yeast None (NONE SEEN) Urinalysis Comment None Urine Culture Reflexed Not indicated Sodium Level 132mEq/L (134-144) Potassium Level 4.0mEq/L (3.5-5.2) Chloride Level 94mEq/L (97-108) Carbon Dioxide Level 22mmol/L (18-29) Blood Urea Nitrogen 20mg/dL (6-24) Creatinine 0.88mg/dL (0.76-1.27) Estimat Glomerular Filtration Rate 97mL/min (>59) Glucose Level 151mg/dL (60-99) Lactic Acid Level 4.3mmol/L (0.4-2.0) Calcium Level 7.8mg/dL (8.5-10.1) Magnesium Level 1.8mg/dL (1.6-2.6) Total Bilirubin 0.7mg/dL (0.0-1.2) Aspartate Amino Transf (AST/SGOT) 75U/L (0-50) Alanine Aminotransferase (ALT/SGPT) 19U/L (0-44) Alkaline Phosphatase 152U/L (25-150) Total Protein 6.3g/dL (6.4-8.4) Albumin 2.3g/dL (3.4-5.0) Assessment/Plan Assessment/Plan Indication: Leg infection Labs: WBC: 36.4 Procal: 2.62 Lact: 4.3 Additional abx: zosyn Pending culture info P: Loading dose of vancomycin 1500mg IV was given one Will give vancomycin 1000 mg q8h Will draw trough on 04/12 @1100 before the 4th dose Pharmacy will continue to follow, thank you. Aniya Wright PharmD Apr 11, 2017 19:37
--- NOTE | 2017-04-11 20:28 | PCM.HPMED ---
Subjective Date of Service Apr 11, 2017 Primary Provider: Admitting Physician: Lisa Downey MD Primary Care Physician: Ashleigh Arizmendi MD Attending Physician: Lisa Downey MD Admit Status: From the Emergency Department, Full Admit Chief Complaint: Right-sided buttock pain History of Present Illness: That 51-year-old male who has a history of hepatitis C, cellulitis, MRSA and is IV methamphetamine user who presents to the emergency room with progressive pain and swelling over the right gluteal area over the past several days. He denies any fevers chills. Denies any chest pain, shortness of breath. Patient denies injecting into his buttock area. His evaluation in the emergency room shows a significantly elevated white count and tachycardia. He also has a history of opioid dependence. Review of Systems: All other review of systems are reviewed and are negative except for as in history of present illness. Allergies Coded Allergies: No Known Allergies (Verified , 02/07/15) Home Medications Scheduled PRN Hydrocodone-Acetaminophen 5-325 mg (Hydrocodone-Acetaminophen 5-325 mg) 1 Each Tablet 1-2 TABLET PO Q4H PRN PRN For Pain PMH Past Medical History Past Medical History Notes: Dr. Ashleigh Arizmendi, PCP Past Medical History MRSA Hepititis C Cellulitis Hx. of opioid dependence Methaphetamine use disorder Anxiety Slipped disc Reports: Depression Past Surgical History Neck surgery Reports: Tonsillectomy Family History Patient denies any family history of infectious diseases Social History Hx Alcohol Use: No Hx Substance Use: Yes (marijuana day before yesterday and some meth-few days ago) Smoking Status: Current Every Day Smoker Living Arrangement: with Family Exam Vital Signs Vital Sign - Last Date Time Temp Pulse Resp B/P Pulse Ox O2 Delivery O2 Flow Rate FiO2 04/11/17 19:33 37.4 106 16 110/71 100 Room Air Exam Constitutional: Middle-aged male who appears in some moderate pain distress and somewhat disheveled Head: Normocephalic atraumatic Eyes: PERRLA DC EOMI mouth: Poor dentition Neck: No adenopathy Chest: Clear to auscultation Cor: Regular rate and rhythm S1-S2 with 2/6 systolic ejection murmur Abdomen: Soft nontender bowel sounds present Extremities: No pedal edema Back: Patient does have induration no erythema and tenderness and edema noted over his right buttock area extending to lateral hip area. Skin: No rashes except as noted above Neuro: Alert and oriented 3, motor strength is intact bilaterally Lab and Diagnostics Labs Laboratory Tests 72 Hours Test 04/11/17 06:55 04/11/17 09:31 04/11/17 10:16 04/11/17 18:10 White Blood Count 36.4th/mm3 (3.8-10.1) Red Blood Count 4.32mil/mm3 (4.40-5.80) Hemoglobin 11.8g/dL (13.8-17.2) Hematocrit 34.7% (41.0-50.0) Mean Corpuscular Volume 80.3fL (81-100) Mean Corpuscular Hemoglobin 27.3pg (27.0-35.0) Mean Corpuscular Hemoglobin Concent 34.0% (32.0-37.0) Red Cell Distribution Width 14.2% (12.3-15.4) Platelet Count 305bil/L (150-400) Neutrophils (%) (Auto) 60% (40-74) Lymphocytes (%) (Auto) 7% (14-46) Monocytes (%) (Auto) 6% (4-12) Eosinophils (%) (Auto) 0% (0-5) Basophils (%) (Auto) 0% (0-3) Band Neutrophils % 27% (1-5) Erythrocyte Sedimentation Rate 48mm/hr (0-15) Sodium Level 132mEq/L (134-144) 132mEq/L (134-144) Potassium Level 4.2mEq/L (3.5-5.2) 4.0mEq/L (3.5-5.2) Chloride Level 90mEq/L (97-108) 94mEq/L (97-108) Carbon Dioxide Level 25mmol/L (18-29) 22mmol/L (18-29) Blood Urea Nitrogen 18mg/dL (6-24) 20mg/dL (6-24) Creatinine 0.84mg/dL (0.76-1.27) 0.88mg/dL (0.76-1.27) Estimat Glomerular Filtration Rate 103mL/min (>59) 97mL/min (>59) Glucose Level 123mg/dL (60-99) 151mg/dL (60-99) Calcium Level 8.5mg/dL (8.5-10.1) 7.8mg/dL (8.5-10.1) C-Reactive Protein 32.1mg/dL (0.0-0.5) Procalcitonin 2.62ng/mL (0.00-0.08) Lactic Acid Level 2.0mmol/L (0.4-2.0) 4.3mmol/L (0.4-2.0) Urine Color Straw (YELLOW) Urine Appearance Hazy (CLEAR,HAZY) Urine pH 6.5 (5.0-8.0) Urine Specific [place] 1.005 (1.003-1.035) Urine Protein Tracemg/dL (NEG,TRACE) Urine Glucose (UA) Negativemg/dL (NEGATIVE) Urine Ketones Negativemg/dL (NEGATIVE) Urine Occult Blood Trace (NEGATIVE) Urine Nitrite Negative (NEGATIVE) Urine Bilirubin Negative (NEGATIVE) Urine Urobilinogen Normalmg/dL (NORMAL) Urine Leukocyte Esterase Negative (NEGATIVE) Urine RBC 3-10/hpf (0-2) Urine WBC 0-5/hpf (0-5) Urine Epithelial Cells Occasional/hpf (NONE-MOD) Urine Crystals Amorphous urates (NONE Urine Bacteria Few/hpf (NONE-FEW) Urine Hyaline Casts None/lpf (NONE) Urine Granular Casts None seen (NONE SEEN) Urine Waxy Casts None seen (NONE SEEN) Urine Red Blood Cell Casts None seen (NONE SEEN) Urine White Blood Cell Casts None seen (NONE SEEN) Urine Mucus None seen (None Seen) Urine Trichomonas None seen (NONE SEEN) Urine Yeast None (NONE SEEN) Urinalysis Comment None Urine Culture Reflexed Not indicated Magnesium Level 1.8mg/dL (1.6-2.6) Total Bilirubin 0.7mg/dL (0.0-1.2) Aspartate Amino Transf (AST/SGOT) 75U/L (0-50) Alanine Aminotransferase (ALT/SGPT) 19U/L (0-44) Alkaline Phosphatase 152U/L (25-150) Total Protein 6.3g/dL (6.4-8.4) Albumin 2.3g/dL (3.4-5.0) Result Diagram: 04/11/17 0655 04/11/17 5010 X-Rays, CTs and MRIs Date of Service: 04/11/17 0641 PROCEDURE: CT ABDOMEN AND PELVIS WITH CONTRAST ([id number]) INDICATIONS: pain, leukocytosis, gluteal/lumbar pain TECHNIQUE: After the administration of intravenous contrast, 5 mm thick sections acquired from the diaphragm to the symphysis. 5 mm coronal and sagittal reformats were acquired. For radiation dose reduction, the following was used: automated exposure control, adjustment of mA and/or kV according to patient size. COMPARISON: [facility], CT, ABD/PELVIS W/CON (PNL), 02/18/2002, 11: 02. [facility], CT, CT KUB, 04/06/2017, 12:54. [facility], CT, ABD/PELVIS W/CON (PNL), 02/23/2015, 6:59. FINDINGS: Image quality: Excellent. ABDOMEN: Lung bases: There is a small right pleural effusion with right basilar atelectasis. A 7 mm subpleural nodule in the left lung base is likely small round atelectasis. Heart size is normal. Trace pericardial effusion. Solid organs: Liver is mildly enlarged measuring 20.3 cm. Spleen is normal in size and enhancement. Gallbladder is normal. Biliary system is non dilated. Mild stranding around the pancreatic tail. No pancreatic duct dilation. No pancreatic calcification or pseudocyst. No adrenal nodules. Kidneys demonstrate normal size and enhancement, without hydronephrosis. There is mild perinephric stranding bilaterally. Peritoneum and bowel: Bowel loops demonstrate normal wall thickness and caliber. No free fluid or air. Nodes and vessels: No retroperitoneal or mesenteric adenopathy by size criteria. Aorta and inferior vena cava are normal in size. Miscellaneous: No ventral hernias. PELVIS: Genitourinary: Bladder wall thickness is normal. Miscellaneous: No inguinal hernias or adenopathy. The right gluteus maximum muscle is enlarged and demonstrates slightly lower attenuation and heterogeneous enhancement. No intramuscular fluid collection. There is subcutaneous fluid and edema in the right upper thigh without enhancement. A small pocket of fluid is seen adjacent to the right greater trochanter No drainable abscess identified. Bones: No suspicious bony lesions. No vertebral body compression fractures. IMPRESSION: 1. Bilateral perinephric stranding suggesting pyelonephritis. No renal stone or hydronephrosis. 2. Mild stranding in the area of the tail of the pancreas, which may be secondary to spread of inflammation/infection from the left kidney or focal pancreatitis. 3. Small right pleural effusion. 4. Trace pericardial effusion. 5. The right gluteus muscle is enlarged and demonstrates low attenuation with somewhat heterogeneous enhancement suggesting myositis. 6. Subcutaneous edema and fluid over right gluteus muscle. There is a small fluid collection over the right greater trochanter which could represent septic greater trochanteric bursal fluid. Ultrasound-guided fluid aspiration may be performed if clinically indicated. 7. Mild hepatomegaly. Dictated by: Amanda Méndez M.D. on 04/11/2017 at 8:31 Approved by: Amanda Méndez M.D. on 04/11/2017 at 8:52 Date of Service: 04/11/17 0840 PROCEDURE: US EXTREMITY SONOGRAM LIMITED ([id number]) INDICATIONS: right gluteal area TECHNIQUE: Real-time scanning was performed of the right, with image documentation. COMPARISON: [facility], CT, CT ABD PELVIS W CON, 04/11/2017, 8:15. [facility], US, EXTREMITY SONOGRAM LTD, 07/08/2013, 11:42. FINDINGS: There is marked soft tissue edema in the right gluteal area. No drainable fluid collection is identified. The patient is tender in the right thigh during examination. IMPRESSION: No drainable fluid collection is identified. There is diffuse soft tissue edema. Dictated by: Amanda Méndez M.D. on 04/11/2017 at 11:39 Approved by: Amanda Méndez M.D. on 04/11/2017 at 11:41 Assessment & Plan #Sepsis from Left gluteal possible cellulitis, acute, present on admission -Dr. Vega infectious disease was consult by ER physician and recommended IV Zosyn and IV vancomycin -3 sets of blood cultures were obtained -Transthoracic echocardiogram ordered for the a.m. -Follow lactic acid levels -Pro-calcitonin is elevated -Sepsis criteria is met by significantly elevated white count and tachycardia -We will give IV fluid hydration #Polysubstance drug abuse, chronic, present on admission -Monitor for withdrawal symptoms -We will initiate his home opiate medication regimen #DVT prophylaxis -SCDs and subcutaneous prophylactic heparin #CODE STATUS -Full code Time spent 60 minutes Lisa Downey MD Apr 11, 2017 20:27
[2017-04-11 21:54] VITALS: BP 107/70; PULSE 113; RESP 16; O2SAT 95
[2017-04-11] MEDS ORDERED: 0.9% Sodium Chloride 250 ML ONE (22:00)
[2017-04-11] MEDS: Vancomycin Inj 1,000 MG in IV Premix 1 EACH IV SCH (22:03)
[2017-04-11] MEDS: HYDROmorphone 1 mg/mL Inj IVPUSH PRN (23:51)
[2017-04-11] MEDS: Sodium Chloride LOK Flush 10 mL Syringe IVFLUSH SCH (23:56)
[2017-04-12] VITALS (10 sets, daily range): BP systolic 106–120; BP diastolic 66–78; PULSE 74–138; RESP 19–24; O2SAT 94–99
[2017-04-12] MEDS: Heparin 5,000 Unit/mL Inj SUBQ SCH ×2 (01:14→08:02)
[2017-04-12] MEDS ORDERED: Diltiazem 5 mg/mL 5 mL Inj IVPUSH ONE ×3 (02:10→20:10)
[2017-04-12] MEDS: Piperacillin-Tazo 3.375 Gm Inj 3.375 GM in Dextrose 5% Minibag Plus 50 ML IV SCH ×3 (03:03→18:36)
[2017-04-12] MEDS: Vancomycin Inj 1,000 MG in IV Premix 1 EACH IV SCH ×2 (03:57→11:59)
[2017-04-12] MEDS: HYDROmorphone 1 mg/mL Inj IVPUSH PRN ×5 (03:58→22:29)
--- NOTE | 2017-04-12 05:38 | NUR ---
Pain/A-flutter Pt reporting pain to back 06/26. Medicated pt with 2 mg IV morphine and 15mg IV toradol. Pt continues to c/o pain, yelling out. paged. Medicated pt with 2 mg IV dilaudid per orders, pt resting in bed with eyes closed after medication admin. When pt awoke, pt stating pain was decreased. instrumentation and control technician called, stating pt's HR converted to A-flutter, HR sustaining in the 160's. paged, EKG ordered. Pt then converted on his own to sinus rhythm with PAC's per monitoring coordinator, HR 90's to 110's. IV cardizem held per MD orders.
[2017-04-12 06:18] LABS: BASOPHILS % (AUTO) 0.1 % (0-3); EOSINOPHILS % (AUTO) 0.2 % (0-5); MONOCYTES % (AUTO) 4.8 % (4-12); Mean Corpuscular Hemoglobin 26.9 pg (27.0-35.0); NEUTROPHILS % (AUTO) 89.8 % (40-74); Platelet Count 203 bil/L (150-400)
[2017-04-12] MEDS: Ketorolac 15 mg/mL Inj IVPUSH PRN (07:53)
[2017-04-12] MEDS: Vancomycin Dose per Pharmacist XX SCH (08:30)
[2017-04-12] MEDS ORDERED: Vancomycin Dose per Pharmacist XX SCH (08:30)
[2017-04-12] MEDS: Sodium Chloride LOK Flush 10 mL Syringe IVFLUSH SCH ×3 (08:45→20:40)
[2017-04-12] MEDS: 0.9% Sodium Chloride 1,000 ML IV SCH ×2 (09:17→17:12)
[2017-04-12] MEDS ORDERED: MeTOProlol 1 mg/mL 5 mL Inj IVPUSH ONE (09:40)
[2017-04-12] MEDS ORDERED: MeTOProlol 1 mg/mL 5 mL Inj IVPUSH PRN (09:45)
[2017-04-12] MEDS ORDERED: Vancomycin Serum Trough XX ONE (11:00)
--- NOTE | 2017-04-12 11:00 | NUR ---
Case Management: [facility] delivered and explained to patient. Signed original placed in chart. Copy left at bedside. Yulia Howell RN
--- NOTE | 2017-04-12 12:29 | NUR ---
Social Work: Initial Assessment / Multidisciplinary Rounds Data: Pt is a 51 y/o male admitted for gluteal infection. pt's PCP is Dr Arizmendi, pt's insurance is Medicare with [facility] supp. EMR reviewed. Readmit score is 2, low. Pt discussed in rounds. MD states pt will remain in hospital likely at least 2 more days. FIELD ADMINISTRATOR met with pt at bedside, role explained. Pt states he lives in [place] with his in a 3 story home where he uses no DME. Pt does not drive, has no hx of HH or SNF, no LTC or VA benefits, and is not a caregiver. No d/c planning needs anticipated at this time. FIELD ADMINISTRATOR will continue to follow. Assessment: Pt who is independent at baseline, currently capable of self care. IV drug use. Plan: Pt will d/c home via POV with spouse when medically stable. FIELD ADMINISTRATOR attempted CD assessment, pt accepted CD resources, declined CDP. FIELD ADMINISTRATOR will continue to follow for d/c planning needs. KUSUM Mckay Addendum: 04/12/17 at 1232 by ALEJANDRA JAY Amended: Links added.
--- NOTE | 2017-04-12 12:32 | NUR ---
Social Work: Chemical dependency assessment attempt FAMILY SERVICE CASEWORKER met with pt regarding CD and IV drug use. Pt acknowledges that he uses, but states the last time he used was 6 days ago. Pt not agreeable to CDP assessment or information. Pt accepted FAMILY SERVICE CASEWORKER outpt resource list for CD. Pt declined further discussion of CD. FAMILY SERVICE CASEWORKER left phone number on pt's board and encouraged him to consider meeting with the CDP and to call if he changes his mind. FAMILY SERVICE CASEWORKER will continue to follow. KUSUM Mckay
[2017-04-12] MEDS: Heparin 25K Unit/500mL 0.45 NS 25,000 UNIT in IV Premix 1 EACH IV SCH (14:06)
--- NOTE | 2017-04-12 16:27 | DRSVH ---
[facility] [address] [place] [address] Echocardiogram Report Name: BERNY YOUNG GStudy Date: 04/12/2017 Height: 73 in Hospital Exam Location: [facility] Weight: 172 lb Gender: Male BSA: 2.0 m2 : 1965 Age: 51 yrs BP: 106/68 mmHg Reason For Study: Murmur Ordering Physician: HOSPITALIST [facility] Performed By: Aliyah Davis Referring Physician: David Carrion Interpretation Summary The patient was in atrial fibrillation with rapid ventricular response during the exam with a heart rate exceeding 100 bpm. The heart rate ranged between 118-149 bpm during the study. The ejection fraction is estimated to be 55-60%. The right ventricle is grossly normal size. Right ventricular systolic function is at the lower limits of normal. There is mild tricuspid regurgitation. The right ventricular systolic pressure is estimated at 28 mmHg assuming a right atrial pressure of 8 mm Hg. Procedure: A two-dimensional transthoracic echocardiogram with color flow and Doppler was performed. The study quality was technically difficult. The patient was unable to follow breathing instructions. There is no prior echocardiogram noted for this patient. The heart rate ranged between 118-149 bpm during the study. The patient was in atrial fibrillation with rapid ventricular response during the exam with a heart rate exceeding 100 bpm. Left Ventricle: The left ventricle is normal in size. Left ventricular wall thickness is mildly increased. There is no thrombus. The ejection fraction is estimated to be 55-60%. There are no obvious focal wall motion abnormalities noted but poor endocardial definition reduces the sensitivity for the detection of such. Diastolic function could not be accurately assessed due to atrial fibrillation. Right Ventricle: The right ventricle is grossly normal size. Right ventricular systolic function is at the lower limits of normal. Atria: The left atrium grossly appears normal in size. The right atrium is mildly dilated. The interatrial septum is intact with no evidence for an atrial septal defect. Mitral Valve: The mitral valve leaflets appear mildly thickened, but open well. There is trace mitral regurgitation. Aortic Valve: The aortic valve is not well visualized. There is no aortic valve stenosis. No aortic regurgitation is present. Tricuspid Valve: The tricuspid valve is not well visualized, but is grossly normal. There is mild tricuspid regurgitation. The right ventricular systolic pressure is estimated at 28 mmHg assuming a right atrial pressure of 8 mm Hg. Pulmonic Valve: The pulmonic valve is not well visualized. There is trace pulmonic regurgitation. Great Vessels: The aortic root is normal size. The ascending aorta could not be visualized. The IVC is of normal diameter and collapses less than 50% with a sniff. This suggests a right atrial pressure of 8 mm Hg. Pericardium/ Pleura There is no pericardial effusion. There is an anterior echo-free space consistent with a fat pad. There is no pleural effusion. MMode/2D Measurements & Calculations LVIDd LVOT diam LV arriaga. diameter/BSA LV sys. diameter/BSA : 5.1 cm : 2.2 cm (cm/m^2): 2.5 (cm/m^2): 2.1 LVIDs : 4.3 cm FS: 15.0 % EPSS : 0.8cm IVSd : 1.cm LVPWd : 1.3 cm Doppler Measurements & Calculations Ao V2 max: 100.5 cm/sec TR max adrien Ao V2 mean LV V1 max PG Ao max P.0 mmHg : 225.6 cm/sec : 80.5 cm/sec Ao mean P.7 mmHg TR max PG Ao V2 VTI LV V1 VTI LVOT Max Adrien : 20.4 mmHg : 9.0 cm : 72.6 cm/sec MELISA(V,D): 2.9 cm2 MELISA(I,D): 2.5 cm sev ratio: 0.63 MELISA indexed to BSA (cm^2/m^2): 1.2 Reading Physician:JAN
--- NOTE | 2017-04-12 16:38 | PCM.PNMED ---
Subjective Date of Service Apr 12, 2017 Subjective Patient is still having not adequate pain control in the right gluteal area. Has had no fevers or chills while here. He brought her midmorning developed RVR A. fib unclear whether he is a prior history of this but he is not aware that he has. He was having some brief chest pain with this. Serial troponins have been checked and first was elevated at 0.06. Chest pain resolved. Exam Vital Signs Vital Sign - Last Date Time Temp Pulse Resp B/P Pulse Ox O2 Delivery O2 Flow Rate FiO2 04/12/17 13:16 37.0 74 22 107/72 94 Room Air Intake and Output 04/11/17 04/11/17 04/12/17 Cumulative From/Thru 15:00 23:00 07:00 04/11/17 06:10 - 04/12/17 05:54 Intake Total 2000 ml 1266 ml 1755 ml 5021 ml Output Total 300 ml 300 ml Balance 2000 ml 966 ml 1755 ml 4721 ml Intake Oral 300 ml 300 ml IV Total 2000 ml 966 ml 1755 ml 4721 ml Output Urine Total 300 ml 300 ml Exam Constitutional: Middle-aged male who appears disheveled Head: Normocephalic H [place] Mouth: Poor dentition Neck: No adenopathy Chest clear to auscultation Cor: Irregular regular rate and rhythm tachycardic, S1, S2 with 2/6 systolic ejection murmur Abdomen: Soft nontender bowel sounds present Extremities no pedal edema there is tenderness over the right gluteal area no erythema noted and appears to be slightly decreased swelling noted. Psych: Mood and affect are appropriate Neuro: Alert and oriented 3, motor strength is intact bilaterally IVs and Medications Medications Reviewed: Medications were reviewed in detail Lab and Diagnostics Laboratory Tests 72 Hours Test 04/11/17 06:55 04/11/17 09:31 04/11/17 10:16 04/11/17 18:10 White Blood Count 36.4th/mm3 (3.8-10.1) Red Blood Count 4.32mil/mm3 (4.40-5.80) Hemoglobin 11.8g/dL (13.8-17.2) Hematocrit 34.7% (41.0-50.0) Mean Corpuscular Volume 80.3fL (81-100) Mean Corpuscular Hemoglobin 27.3pg (27.0-35.0) Mean Corpuscular Hemoglobin Concent 34.0% (32.0-37.0) Red Cell Distribution Width 14.2% (12.3-15.4) Platelet Count 305bil/L (150-400) Neutrophils (%) (Auto) 60% (40-74) Lymphocytes (%) (Auto) 7% (14-46) Monocytes (%) (Auto) 6% (4-12) Eosinophils (%) (Auto) 0% (0-5) Basophils (%) (Auto) 0% (0-3) Band Neutrophils % 27% (1-5) Erythrocyte Sedimentation Rate 48mm/hr (0-15) Sodium Level 132mEq/L (134-144) 132mEq/L (134-144) Potassium Level 4.2mEq/L (3.5-5.2) 4.0mEq/L (3.5-5.2) Chloride Level 90mEq/L (97-108) 94mEq/L (97-108) Carbon Dioxide Level 25mmol/L (18-29) 22mmol/L (18-29) Blood Urea Nitrogen 18mg/dL (6-24) 20mg/dL (6-24) Creatinine 0.84mg/dL (0.76-1.27) 0.88mg/dL (0.76-1.27) Estimat Glomerular Filtration Rate 103mL/min (>59) 97mL/min (>59) Glucose Level 123mg/dL (60-99) 151mg/dL (60-99) Calcium Level 8.5mg/dL (8.5-10.1) 7.8mg/dL (8.5-10.1) C-Reactive Protein 32.1mg/dL (0.0-0.5) Procalcitonin 2.62ng/mL (0.00-0.08) Lactic Acid Level 2.0mmol/L (0.4-2.0) 4.3mmol/L (0.4-2.0) Urine Color Straw (YELLOW) Urine Appearance Hazy (CLEAR,HAZY) Urine pH 6.5 (5.0-8.0) Urine Specific [place] 1.005 (1.003-1.035) Urine Protein Tracemg/dL (NEG,TRACE) Urine Glucose (UA) Negativemg/dL (NEGATIVE) Urine Ketones Negativemg/dL (NEGATIVE) Urine Occult Blood Trace (NEGATIVE) Urine Nitrite Negative (NEGATIVE) Urine Bilirubin Negative (NEGATIVE) Urine Urobilinogen Normalmg/dL (NORMAL) Urine Leukocyte Esterase Negative (NEGATIVE) Urine RBC 3-10/hpf (0-2) Urine WBC 0-5/hpf (0-5) Urine Epithelial Cells Occasional/hpf (NONE-MOD) Urine Crystals Amorphous urates (NONE Urine Bacteria Few/hpf (NONE-FEW) Urine Hyaline Casts None/lpf (NONE) Urine Granular Casts None seen (NONE SEEN) Urine Waxy Casts None seen (NONE SEEN) Urine Red Blood Cell Casts None seen (NONE SEEN) Urine White Blood Cell Casts None seen (NONE SEEN) Urine Mucus None seen (None Seen) Urine Trichomonas None seen (NONE SEEN) Urine Yeast None (NONE SEEN) Urinalysis Comment None Urine Culture Reflexed Not indicated Magnesium Level 1.8mg/dL (1.6-2.6) Total Bilirubin 0.7mg/dL (0.0-1.2) Aspartate Amino Transf (AST/SGOT) 75U/L (0-50) Alanine Aminotransferase (ALT/SGPT) 19U/L (0-44) Alkaline Phosphatase 152U/L (25-150) Total Protein 6.3g/dL (6.4-8.4) Albumin 2.3g/dL (3.4-5.0) Test 04/11/17 21:10 04/12/17 00:55 04/12/17 05:10 04/12/17 10:50 Lactic Acid Level 4.1mmol/L (0.4-2.0) 1.6mmol/L (0.4-2.0) White Blood Count 26.8th/mm3 (3.8-10.1) Red Blood Count 4.05mil/mm3 (4.40-5.80) Hemoglobin 10.9g/dL (13.8-17.2) Hematocrit 32.0% (41.0-50.0) Mean Corpuscular Volume 79.0fL (81-100) Mean Corpuscular Hemoglobin 26.9pg (27.0-35.0) Mean Corpuscular Hemoglobin Concent 34.1% (32.0-37.0) Red Cell Distribution Width 14.4% (12.3-15.4) Platelet Count 203bil/L (150-400) Neutrophils (%) (Auto) 89.8% (40-74) Lymphocytes (%) (Auto) 3.8% (14-46) Monocytes (%) (Auto) 4.8% (4-12) Eosinophils (%) (Auto) 0.2% (0-5) Basophils (%) (Auto) 0.1% (0-3) Procalcitonin 6.24ng/mL (0.00-0.08) Troponin T 0.060ug/L (0.0-0.011) Test 04/12/17 11:35 04/12/17 13:35 04/12/17 16:25 Vancomycin Level Trough 12.6mcg/mL Activated Partial Thromboplast Time 42.2sec (22.8-33.0) Result Diagram: 04/12/17 0510 04/11/17 1810 X-Rays, CTs and MRIs Date of Service: 04/11/17 0641 PROCEDURE: CT ABDOMEN AND PELVIS WITH CONTRAST ([id number]) INDICATIONS: pain, leukocytosis, gluteal/lumbar pain TECHNIQUE: After the administration of intravenous contrast, 5 mm thick sections acquired from the diaphragm to the symphysis. 5 mm coronal and sagittal reformats were acquired. For radiation dose reduction, the following was used: automated exposure control, adjustment of mA and/or kV according to patient size. COMPARISON: [facility], CT, ABD/PELVIS W/CON (PNL), 02/18/2002, 11: 02. [facility], CT, CT KUB, 04/06/2017, 12:54. [facility], CT, ABD/PELVIS W/CON (PNL), 02/23/2015, 6:59. FINDINGS: Image quality: Excellent. ABDOMEN: Lung bases: There is a small right pleural effusion with right basilar atelectasis. A 7 mm subpleural nodule in the left lung base is likely small round atelectasis. Heart size is normal. Trace pericardial effusion. Solid organs: Liver is mildly enlarged measuring 20.3 cm. Spleen is normal in size and enhancement. Gallbladder is normal. Biliary system is non dilated. Mild stranding around the pancreatic tail. No pancreatic duct dilation. No pancreatic calcification or pseudocyst. No adrenal nodules. Kidneys demonstrate normal size and enhancement, without hydronephrosis. There is mild perinephric stranding bilaterally. Peritoneum and bowel: Bowel loops demonstrate normal wall thickness and caliber. No free fluid or air. Nodes and vessels: No retroperitoneal or mesenteric adenopathy by size criteria. Aorta and inferior vena cava are normal in size. Miscellaneous: No ventral hernias. PELVIS: Genitourinary: Bladder wall thickness is normal. Miscellaneous: No inguinal hernias or adenopathy. The right gluteus maximum muscle is enlarged and demonstrates slightly lower attenuation and heterogeneous enhancement. No intramuscular fluid collection. There is subcutaneous fluid and edema in the right upper thigh without enhancement. A small pocket of fluid is seen adjacent to the right greater trochanter No drainable abscess identified. Bones: No suspicious bony lesions. No vertebral body compression fractures. IMPRESSION: 1. Bilateral perinephric stranding suggesting pyelonephritis. No renal stone or hydronephrosis. 2. Mild stranding in the area of the tail of the pancreas, which may be secondary to spread of inflammation/infection from the left kidney or focal pancreatitis. 3. Small right pleural effusion. 4. Trace pericardial effusion. 5. The right gluteus muscle is enlarged and demonstrates low attenuation with somewhat heterogeneous enhancement suggesting myositis. 6. Subcutaneous edema and fluid over right gluteus muscle. There is a small fluid collection over the right greater trochanter which could represent septic greater trochanteric bursal fluid. Ultrasound-guided fluid aspiration may be performed if clinically indicated. 7. Mild hepatomegaly. Dictated by: Amanda Méndez M.D. on 04/11/2017 at 8:31 Approved by: Amanda Méndez M.D. on 04/11/2017 at 8:52 Date of Service: 04/11/17 0840 PROCEDURE: US EXTREMITY SONOGRAM LIMITED ([id number]) INDICATIONS: right gluteal area TECHNIQUE: Real-time scanning was performed of the right, with image documentation. COMPARISON: [facility], CT, CT ABD PELVIS W CON, 04/11/2017, 8:15. [facility], US, EXTREMITY SONOGRAM LTD, 07/08/2013, 11:42. FINDINGS: There is marked soft tissue edema in the right gluteal area. No drainable fluid collection is identified. The patient is tender in the right thigh during examination. IMPRESSION: No drainable fluid collection is identified. There is diffuse soft tissue edema. Dictated by: Amanda Méndez M.D. on 04/11/2017 at 11:39 Approved by: Amanda Méndez M.D. on 04/11/2017 at 11:41 Assessment & Plan #Sepsis from Left gluteal cellulitis, acute, present on admission -Dr. Vega infectious disease was consult by ER physician and recommended IV Zosyn and IV vancomycin -3 sets of blood cultures were obtained -Transthoracic echocardiogram results are pending at the time of this dictation -Follow lactic acid levels -Pro-calcitonin is elevated -Sepsis criteria is met by significantly elevated white count and tachycardia -We will give IV fluid hydration #RVR A. fib, acute, not present on admission -Await results of echocardiogram -Check CTA of chest PE protocol -Serial troponins -Initiate IV heparin drip given initial elevated initial troponin -Did respond to IV metoprolol and have initiated metoprolol tartrate 25 mg by mouth twice a day and came titrate dose if needed #Polysubstance drug abuse, chronic, present on admission -Monitor for withdrawal symptoms -We will initiate his home opiate medication regimen -check services clerk consult for chemical dependence -Check HIV, chronic hepatitis profile #DVT prophylaxis -SCDs and now on IV heparin drip cardiac protocol #CODE STATUS -Full code Time spent 35 minutes Lisa Downey MD Apr 12, 2017 16:38
--- NOTE | 2017-04-12 16:41 | PCM.PHAPRO ---
Progress Right-sided buttock pain Trough returned sub-tx at 12.6. Micro returned with g+ cocci, pending ID. Increasing dose to 1250q8 next trough after three doses at 04/13@1830 Farrukh Villalobos Pharm.D Apr 12, 2017 16:40
--- NOTE | 2017-04-12 16:49 | NUR ---
Chest pain/Heparin drip Patient reporting chest pain this morning. Stat EKG obtained. Patient had a positive troponin. Cardiac Heparin drip ordered. Addendum: 04/12/17 at 1731 by YOGESH GRISSOM RN Patient Heart rate 170-180 while standing at bedside. 2nd dose of IV Metoprolol given along with po metoprolol per hospitalist.
--- NOTE | 2017-04-12 18:53 | DRSVH ---
PROCEDURE: CT ANGIO CHEST PULMONARY EMBOLISM ([id number]) INDICATIONS: RVR a fib TECHNIQUE: After the administration of intravenous contrast, 2 mm thick sections acquired from the pulmonary api sandrita to the posterior costophrenic angles. 3-dimensional maximum intensity projection (MIP) coronal a nd sagittal reformats were then acquired through the thorax. For radiation dose reduction, the follo wing was used: automated exposure control, adjustment of mA and/or kV according to patient size. COMPARISON: None. FINDINGS: Image quality: There is motion artifact limiting evaluation. Pulmonary arteries: Pulmonary arteries demonstrate no intraluminal filling defects to suggest centra l pulmonary embolism. Evaluation of subsegmental branches is limited due to motion artifact. There is mild enlargement of the pulmonary arteries suggesting pulmonary arterial hypertension. The main p ulmonary artery measures up to 3.1 cm. Lungs and pleura: There are small bilateral pleural effusions, right greater than left, with associa igor mild compressive atelectasis. There are bilateral patchy small regions of consolidation peripher ally in the bilateral upper lobes, right middle lobe, and left lower lobe. There is suggestion of mi ld cavitation within a few right upper lobe lesions. Central and peripheral airways are patent. Mediastinum: Heart size is normal, without pericardial effusion. Thoracic aorta is normal in calibe r and enhancement. There are multiple mildly enlarged mediastinal lymph nodes including an azygoesop hageal lymph node measuring up to 1.3 cm. Esophagus is normal in caliber, without hiatal hernia. Bones and chest wall: No suspicious bony lesions. Ribs and thoracic spine appear intact throughout. Thyroid gland is partially visualized with heterogeneous appearance bilaterally. No axillary or nichols praclavicular adenopathy. Abdomen: Visualized upper abdomen demonstrates nonspecific perinephric stranding along the partially visualized kidneys. IMPRESSION: 1. No central pulmonary embolism, with evaluation of distal subsegmental branches limited by motion artifact. 2. Multiple bilateral small areas of consolidation peripherally highly suspicious for septic emboli. The differential includes atypical infections or possible inflammatory processes. 3. Small bilateral pleural effusions with associated compressive atelectasis. 4. Enlargement of the pulmonary arteries suggesting pulmonary arterial hypertension. 5. Mild enlargement of mediastinal lymph nodes are likely reactive. Dictated by: Bogdan Moya M.D. on 04/12/2017 at 18:41 Approved by: Bogdan Moya M.D. on 04/12/2017 at 18:52
[2017-04-12] MEDS: Vancomycin Inj 1,250 MG in 0.9% Sodium Chloride 250 ML IV SCH (20:34)
[2017-04-12] MEDS ORDERED: Acetaminophen IV 1,000 MG in IV Premix 1 EACH IV PRN (21:55)
[2017-04-12] MEDS: Diltiazem Inj 125 MG in Dextrose 5% 100 ML IV SCH (22:15)
--- NOTE | 2017-04-12 22:50 | NUR ---
Telemetry At beginning of shift, pt HR increased to 160s from reported HR of approx. 140s prior to shift change. Pt endorsed 6/10 chest pain and dyspnea. paged. 10mg IVP Cardizem ordered and administered with subsequent decrease in HR to approx. 120s, though only temporarily; pt HR returned to approx. 140s-150s after approx. 20min. paged again, orders received for transfer to [facility] and diltiazem gtt. One additional Cardizem IVP of 20mg administered prior to transfer, with subsequent decrease in HR to 110s. Pt transferred with tele of afib 110s and CP maintained at 6/10. Report given to Odilia Solis RN. All belongings transferred with pt to room 2026 on [facility] at approx. 2100. Mother at bedside; patient and mother both stated understanding of plan of care. At 1924, critical result of PTT at 177.4 called to this RN; Heparin gtt stopped temporarily; paged and aware; STAT PTT ordered. Multiple calls made to lab requesting STAT redraw. At time of transfer, PTT had not yet been drawn; heparin gtt still on hold; RN receiving patient made aware.
[2017-04-13] VITALS (7 sets, daily range): BP systolic 93–138; BP diastolic 51–113; PULSE 80–166; RESP 18–39; O2SAT 96–99
[2017-04-13] MEDS: 0.9% Sodium Chloride 1,000 ML IV SCH ×3 (01:06→23:23)
--- NOTE | 2017-04-13 01:13 | NUR ---
Transfer to [facility] Pt transferred to [facility] room 2026 for afib RVR When pt arrived to the floor he had a temp of 39.5 and is diaphoretic. Tele shows afib RVR 140s. Pt in 8/10 chest and gluteal pain, and also reports "seeing spots" in vision. notified of above. Orders for IV acetaminophen, cardizem gtt, and AM labs, as well as IV pain meds. No labs ordered at this time, although lactic added to AM labs. Pt on MP30 monitoring for RVR. While monitoring noticing a decrease in BP trends as low as 80s/50s. MAP remains >60 throughout and was mostly stable. NS bolus given and pt BP stable even though it is low. SpO2 remains mid to high 90s on RA. Attempted to look at abscess on R buttock (pt pointed to area), but i did not see any abnormalities. Pt and family oriented to floor, plan, room and call light. Care ongoing
[2017-04-13] MEDS: Ketorolac 15 mg/mL Inj IVPUSH PRN (02:16)
[2017-04-13] MEDS: Piperacillin-Tazo 3.375 Gm Inj 3.375 GM in Dextrose 5% Minibag Plus 50 ML IV SCH ×3 (02:19→18:35)
[2017-04-13 04:18] LABS: Mean Corpuscular Hemoglobin 27.4 pg (27.0-35.0); Mean Corpuscular Volume 78.8 fL (81-100); Platelet Count 139 bil/L (150-400)
[2017-04-13] MEDS: Vancomycin Inj 1,250 MG in 0.9% Sodium Chloride 250 ML IV SCH ×3 (04:25→20:28)
[2017-04-13 04:32] LABS: BASOPHILS % (AUTO) 0.2 % (0-3); EOSINOPHILS % (AUTO) 0.1 % (0-5); MONOCYTES % (AUTO) 5.7 % (4-12)
[2017-04-13] MEDS ORDERED: Etomidate 2 mg/mL 20 mL Inj IV ONE (04:45)
[2017-04-13] MEDS ORDERED: Succinylcholine Chloride 20 mg/mL 5 mL Inj ONE (04:45)
[2017-04-13] MEDS: Heparin 5,000 Unit/mL Inj IVPUSH PRN ×3 (05:06→19:47)
[2017-04-13] MEDS: Sodium Chloride LOK Flush 10 mL Syringe IVFLUSH SCH ×2 (08:15→16:30)
[2017-04-13] MEDS: HYDROmorphone 1 mg/mL Inj IVPUSH PRN ×3 (08:19→21:41)
[2017-04-13] MEDS: Vancomycin Dose per Pharmacist XX SCH (08:30)
[2017-04-13] MEDS: Morphine ER 15 mg (MS Contin) Tablet PO SCH ×2 (12:25→20:30)
[2017-04-13] MEDS ORDERED: HYDROmorphone 1 mg/mL Inj IVPUSH PRN ×4 (12:40→20:40)
--- NOTE | 2017-04-13 14:27 | CONS ---
[address] [address] CONSULTATION REPORT PATIENT: BERNY YOUNG : 1965 MR#: [id number] ADMIT: 04/11/2017 JOB ID: [id number] DATE OF SERVICE: 04/13/2017 CARDIOLOGY CONSULTATION: The patient is a 51-year-old male that I have been asked to consult, who presents with possible septic pulmonary emboli and right buttock abscess with methicillin-resistant Staph aureus positive blood cultures. 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 He presented to the hospital with a 1-week history of pleuritic chest discomfort, increasing dyspnea, fevers, and swelling and progressive pain in his right gluteal area. Evaluation demonstrated elevated white count, mild tachycardia, and fever, and 3/3 blood cultures were positive for methicillin-resistant Staph aureus. As part of his evaluation an echocardiogram was completed yesterday which I reviewed personally and demonstrates no clear valvular dysfunction or valvular vegetation. Left ventricular size and function appear normal. During the night last night the patient developed persistent atrial fibrillation and on admission his ECG was notable for a short MT interval and frequent PACs. At this time the patient states that he has persistent pleuritic chest discomfort and remains mildly dyspneic and uncomfortable from his right buttocks. He states that he had a temperature of up to 103 last night. REVIEW OF SYSTEMS: Notable for the absence of any history of stroke or TIA like symptoms. He has had no complaints of headache or neck stiffness. He has no visual abnormalities. He states that he has no active dental infection, though he has a typical meth mouth with multiple teeth that have completely eroded are and grossly carious. No obvious loose teeth apparent. He denies any symptoms of esophageal dysphagia or previous esophageal procedures. He has no awareness of his atrial fibrillation and is not complaining of any kind of chest discomfort other than his pleuritic inspiratory discomfort. He denies any melena or hematochezia or hematuria. He states that his abdomen feels distended and mildly uncomfortable and he has not had a stool for a period of time. Review of systems otherwise is unremarkable. PAST MEDICAL HISTORY: Again includes his hepatitis C history, chronic opioid dependence, methamphetamine use intravenously. PAST SURGICAL HISTORY: Reviewed and unremarkable. FAMILY HISTORY: Reviewed and unremarkable. SOCIAL HISTORY: Notable for the fact that he lives with family. His mother was present, as well as his daughter. He smokes on a regular basis and uses marijuana daily as well, in addition to methamphetamines. PHYSICAL EXAMINATION: Shows a cooperative 51-year-old male who his 6 feet 1 inches tall, 182 pounds, body mass index of 21.6. He had a temperature ups of 39.5 last evening; temperature is 37.5 today. Heart rate has been variable, ranging between 80 and 120 beats per minute with what appears to be atrial fibrillation, with blood pressures in the 95-120 range, and his room air O2 saturation is 96%. HEENT examination again is notable for grossly carious and missing teeth but no obvious loose teeth. No scleral injection or scleral hemorrhages noted. Fingernails are quite dirty and bitten down to the nub, but I do not appreciate any obvious splinter hemorrhages. Skin is unremarkable. Jugular venous pressure may be mildly increased. I do not see wallace V waves. Carotid upstroke is normal, without carotid bruits. I do not hear any pleural rubs. No wheezes or rhonchi. Cardiac exam is notable for rapid irregular rhythm. S2 is physiologically split. I do not hear an obvious murmur. Abdomen is mildly tender but not is obviously distended. I do not feel either liver or spleen. Distal extremities are warm and well perfused. Distal pedal pulses are normal. He has no lower extremity edema. I did not examine his buttocks. LABORATORY: Notable for white count on admission of 36,000. He moderately anemic currently with a hemoglobin of 9.3. He has a high sed rate and a marked left shift. Chemistries show abnormal liver function tests with abnormal AST and alkaline phosphatase. Blood sugar is moderately increased. His renal function appears to be normal, with normal electrolytes. He has a mild lactic acidosis. TSH level is actually low. Hepatitis C antibody is positive. IMPRESSION: Methicillin-resistant Staphylococcus aureus (MRSA) bacteremia with a history of IV methamphetamine use. The patient has evidence of multifocal pneumonia and it seems very reasonable to try to exclude endocarditis with a transesophageal echocardiogram. There is no urgency to this evaluations since his transthoracic examination shows no obvious valvular dysfunction or vegetation, and therefore I will plan to schedule this procedure for Sunday. Will keep the patient n.p.o. after midnight Sunday and I will ask anesthesiology to assist with his sedation for the procedure. I appreciate the opportunity of seeing this patient and will follow up with him Sunday briefly to review the procedure once again with him and his family, and will plan to proceed as suggested on Sunday.
--- NOTE | 2017-04-13 16:56 | PCM.PNMED ---
Subjective Date of Service Apr 13, 2017 Subjective That 51-year-old male who has a history of hepatitis C, cellulitis, MRSA and is IV methamphetamine user who presents to the emergency room with progressive pain and swelling over the right gluteal area over the past several days. He denies any fevers chills. Denies any chest pain, shortness of breath. Patient denies injecting into his buttock area. His evaluation in the emergency room shows a significantly elevated white count and tachycardia. He also has a history of opioid dependence. Admitted overnight. Today patient reports significant pain over right SI joint. Very tender to movement and palpation. He reports most recent IV Heroin use 1 month ago, most recently injected meth 2x in the last 2 weeks. He denies sharing needles. He only injects in the right ante-cubital fossa. He denies risk for withdrawal to ETOH or other drugs. He smokes 1/2 - 1 pack per day for >20 years. He reports fever and Tenderness in the RUQ. Exam Vital Signs Vital Sign - Last Date Time Temp Pulse Resp B/P Pulse Ox O2 Delivery O2 Flow Rate FiO2 04/13/17 11:57 37.5 122 22 120/79 96 Room Air Intake and Output 04/12/17 04/12/17 04/13/17 Cumulative From/Thru 15:00 23:00 07:00 04/11/17 06:10 - 04/13/17 03:56 Intake Total 800 ml 750 ml 6571 ml Output Total 575 ml 1975 ml 2850 ml Balance 225 ml -1225 ml 3721 ml Intake Oral 800 ml 750 ml 1850 ml IV Total 4721 ml Output Urine Total 575 ml 1975 ml 2850 ml Exam Constitutional: Middle-aged male who appears in some moderate pain distress and somewhat disheveled Head: Normocephalic atraumatic Eyes: PERRLA DC EOMI mouth: Poor dentition Neck: No adenopathy Chest: Clear to auscultation Cor: Regular rate and rhythm S1-S2 with 2/6 systolic ejection murmur Abdomen: Soft nontender bowel sounds present Extremities: No pedal edema Back: Patient does have induration no erythema and tenderness and edema noted over his right buttock area extending to lateral hip area. Skin: No rashes except as noted above Neuro: Alert and oriented 3, motor strength is intact bilaterally IVs and Medications Medications Reviewed: Medications were reviewed in detail Lab and Diagnostics Result Diagram: 04/13/17 0410 04/13/17 0410 X-Rays, CTs and MRIs Date of Service: 04/11/17 0641 PROCEDURE: CT ABDOMEN AND PELVIS WITH CONTRAST ([id number]) INDICATIONS: pain, leukocytosis, gluteal/lumbar pain TECHNIQUE: After the administration of intravenous contrast, 5 mm thick sections acquired from the diaphragm to the symphysis. 5 mm coronal and sagittal reformats were acquired. For radiation dose reduction, the following was used: automated exposure control, adjustment of mA and/or kV according to patient size. COMPARISON: [facility], CT, ABD/PELVIS W/CON (PNL), 02/18/2002, 11: 02. [facility], CT, CT KUB, 04/06/2017, 12:54. [facility], CT, ABD/PELVIS W/CON (PNL), 02/23/2015, 6:59. FINDINGS: Image quality: Excellent. ABDOMEN: Lung bases: There is a small right pleural effusion with right basilar atelectasis. A 7 mm subpleural nodule in the left lung base is likely small round atelectasis. Heart size is normal. Trace pericardial effusion. Solid organs: Liver is mildly enlarged measuring 20.3 cm. Spleen is normal in size and enhancement. Gallbladder is normal. Biliary system is non dilated. Mild stranding around the pancreatic tail. No pancreatic duct dilation. No pancreatic calcification or pseudocyst. No adrenal nodules. Kidneys demonstrate normal size and enhancement, without hydronephrosis. There is mild perinephric stranding bilaterally. Peritoneum and bowel: Bowel loops demonstrate normal wall thickness and caliber. No free fluid or air. Nodes and vessels: No retroperitoneal or mesenteric adenopathy by size criteria. Aorta and inferior vena cava are normal in size. Miscellaneous: No ventral hernias. PELVIS: Genitourinary: Bladder wall thickness is normal. Miscellaneous: No inguinal hernias or adenopathy. The right gluteus maximum muscle is enlarged and demonstrates slightly lower attenuation and heterogeneous enhancement. No intramuscular fluid collection. There is subcutaneous fluid and edema in the right upper thigh without enhancement. A small pocket of fluid is seen adjacent to the right greater trochanter No drainable abscess identified. Bones: No suspicious bony lesions. No vertebral body compression fractures. IMPRESSION: 1. Bilateral perinephric stranding suggesting pyelonephritis. No renal stone or hydronephrosis. 2. Mild stranding in the area of the tail of the pancreas, which may be secondary to spread of inflammation/infection from the left kidney or focal pancreatitis. 3. Small right pleural effusion. 4. Trace pericardial effusion. 5. The right gluteus muscle is enlarged and demonstrates low attenuation with somewhat heterogeneous enhancement suggesting myositis. 6. Subcutaneous edema and fluid over right gluteus muscle. There is a small fluid collection over the right greater trochanter which could represent septic greater trochanteric bursal fluid. Ultrasound-guided fluid aspiration may be performed if clinically indicated. 7. Mild hepatomegaly. Dictated by: Amanda Méndez M.D. on 04/11/2017 at 8:31 Approved by: Amanda Méndez M.D. on 04/11/2017 at 8:52 Date of Service: 04/11/17 0840 PROCEDURE: US EXTREMITY SONOGRAM LIMITED ([id number]) INDICATIONS: right gluteal area TECHNIQUE: Real-time scanning was performed of the right, with image documentation. COMPARISON: [facility], CT, CT ABD PELVIS W CON, 04/11/2017, 8:15. [facility], US, EXTREMITY SONOGRAM LTD, 07/08/2013, 11:42. FINDINGS: There is marked soft tissue edema in the right gluteal area. No drainable fluid collection is identified. The patient is tender in the right thigh during examination. IMPRESSION: No drainable fluid collection is identified. There is diffuse soft tissue edema. Dictated by: Amanda Méndez M.D. on 04/11/2017 at 11:39 Approved by: Amanda Méndez M.D. on 04/11/2017 at 11:41 Assessment & Plan That 51-year-old male who has a history of hepatitis C, Cellulitis, MRSA and is IV methamphetamine user who presents to the emergency room with progressive pain and swelling over the right gluteal area over the past several days. He denies any fevers chills. Denies any chest pain, shortness of breath. His blood cultures are positive for MRSA in all bottles. We are also concerned about a possible septic joint vs. osteomyelitis. Sepsis MRSA Bacteremia, acute, present on admission. Active. - Sepsis criteria is met by significantly elevated white count and tachycardia and Blood cx positive. - 3 sets of blood cultures all positive for MRSA. - Transthoracic echocardiogram as above. - Follow lactic acid levels. - Pro-calcitonin is elevated. - We will give IV fluid hydration. - MRI of the R Hip pending. - Dr. Vega infectious disease consulted. Will continue IV vancomycin. RVR A. fib, acute, not present on admission - Await results of echocardiogram. - Check CTA of chest PE protocol. - Serial troponins. - Initiate IV heparin drip given initial elevated initial troponin. - Diltiazem ggt to PO 30mg Q6H. Polysubstance drug abuse, chronic, present on admission. Active. - Monitor for withdrawal symptoms. - We will initiate his home opiate medication regimen. - director of managed services consult for chemical dependence. - Check HIV, chronic hepatitis profile. DVT prophylaxis - SCDs and now on IV heparin drip cardiac protocol. CODE STATUS - Full code Acetaminophen for mild pain when necessary. Bowel regimen Senna and MiraLAX scheduled and PRN. Zofran when necessary for nausea and vomiting. SubQ heparin held for now. SCDs in place. High-risk medications: IV Dilaudid. Vancomycin Disposition: Likely here for > 2 midnights. Dependent upon IV antibiotics and osteomyelitis. Will be discharged to home when medically stable. Pain Evaluation: Adequate Pain Control Resuscitation Status: CPR: Attempt Resuscitation Time spent 35 minutes Attending Statement I interviewed and examined the patient on rounds today. High suspicion for bacterial endocarditis with septic embolic phenomenon. Need for heparinization will be discussed with residential youth counselor. I agree with the assessment and plan as stated above. EMMETT VALDIVIA DO Apr 13, 2017 13:27 Teofilo Al MD Apr 13, 2017 17:15
--- NOTE | 2017-04-13 17:20 | DRSVH ---
PROCEDURE: MRI PELVIS WITH AND WITHOUT CONTRAST ([id number]) INDICATIONS: 51 year-old male with history of hepatitis C, cellulitis, and IV drug use presenting wit h progressive pain and swelling in the right gluteal region. / TECHNIQUE: Noncontrast coronal T1 spin echo and STIR, sagittal T1 spin echo with fat saturation and STIR, axial T1 spin echo and T2 fast spin echo with fat saturation. After the administration of contrast, axial/ sagittal/coronal T1 spin echo with fat saturation through the pelvis. COMPARISON: [facility], CT, CT ABD PELVIS W CON, 04/11/2017, 8:15. FINDINGS: Image quality: There is motion artifact limiting evaluation. Bones: The visualized bone marrow demonstrates heterogeneous signal likely reflecting hematopoietic marrow reconversion. No definite cortical erosions, marrow edema, aren't abnormal enhancement to sug gest osteomyelitis. There are minimal bilateral hip joint effusions without definite abnormal periar ticular synovial thickening or enhancement. Soft tissues: There is extensive subcutaneous edema most prominent lateral to the right hip. There is asymmetric enlargement of the right gluteus missy muscle with abnormal edema and enhancement. T here is a large multiseptated collection within the gluteus missy muscle measuring approximately 9. 8 x 3.6 x 12.8 cm in dimension with enhancing romano and septations consistent with a multiloculated a bscess. No discrete soft tissue ulcer or sinus tract identified. The visualized pelvis demonstrates a small to moderate amount of nonspecific intraperitoneal free flu id. Visualized bowel loops are normal in caliber. The bladder demonstrates normal wall thickness. IMPRESSION: 1. Abnormal edema and enhancement of the right gluteus missy muscle consistent with myositis with a large multiloculated intramuscular abscess collection demonstrated. Given the numerous internal lo culations, percutaneous aspiration would likely not be effective. 2. No definite evidence of osteomyelitis or septic arthritis. 3. Small amount of intraperitoneal free fluid in the pelvis is nonspecific. Dictated by: Bogdan Moya M.D. on 04/13/2017 at 17:09 Approved by: Bogdan Moya M.D. on 04/13/2017 at 17:19
--- NOTE | 2017-04-13 18:12 | NUR ---
P: Resp, Cardiac, Neuro, Pain I,E: Pt has RR in the 20's to 30's but sats are have been high 90's he denies dyspnea. HR for the majority of the day has been 90's to 100's a-fib, although he was off his Cardizem gtt for his MRI this afternoon and at this time his HR is in the 130's and 140's. He has had a low grade temp today, antibiotics continue. Of note, he has redness on both elbows left greater than right with pimple like lesions on both elbows, left was bigger than right and a swab was sent for culture from this wound. Pt has been sleeping most of the day, he is co operative, at times a little anxious. He did request valium prior to the MRI for anxiety and this was given per MD. Pt has complained of pain on and off today but pain has been relieved with dilaudid. MD adjusting pain meds to facilitate a more consistent level of analgesia. Heparin gtt continues and has been adjusted per hep protocol.
[2017-04-13] MEDS ORDERED: Vancomycin Serum Trough XX ONE (18:30)
[2017-04-13] MEDS: Heparin 25K Unit/500mL 0.45 NS 25,000 UNIT in IV Premix 1 EACH IV SCH (19:19)
--- NOTE | 2017-04-13 20:18 | PCM.PHAPRO ---
Progress Right-sided buttock pain VANCOMYCIN DOSING PER PHARMACY Goal Trough: 15-20 Level (04/13@1904): 17.6 SCr: stable Will continue with current dosing of 1250mg every 8 hrs. Pharmacy will continue to monitor for changes in renal fx. Radhames Turner, PharmD Radhames Turner Apr 13, 2017 20:18
[2017-04-13] MEDS ORDERED: HYDROmorphone 1 mg/mL Inj IVPUSH ONE ×2 (21:05)
--- NOTE | 2017-04-13 22:30 | NUR ---
Pt transferred from PCC to CCU with resp. distress. Resp. in the 50's, HR in the 120's. ABG's done.Bipap initiated.
--- NOTE | 2017-04-13 22:38 | ABG ---
DateTimeAnalyzed 22:31:00 -_ pH ____7.464 - 7.350 7.450 pCO2 ___29.1__ -mmHg 35.0 45.0 pO2 ___76.2__ -mmHg 69.0 116 HCO3- ___20.6__ -mmol/L 22.0 26.0 ABE ___-2.1__ -mmol/L -2.0 2.0 tHb ____9.2__ -g/dL O2Hb ___93.9__ -% COHb ____0.8__ -% MetHb ____0.8__ -% sO2 ___95.4__ -% 25.0 FIO2 ___50.0__ -% Drawn By AF - Date/Time Notified____ 22:37:00 -_ Notified By AF - Notified Whom ___Dr. Quisumbing - B 760 -mmHg tO2 ___12.2__ -Vol% Zeke test _Positive -
[2017-04-13] MEDS: Diltiazem Inj 125 MG in Dextrose 5% 100 ML IV SCH (23:22)
[2017-04-14] VITALS (15 sets, daily range): BP systolic 82–129; BP diastolic 8–73; PULSE 89–125; RESP 26–52; O2SAT 93–100
[2017-04-14] MEDS: Sodium Chloride LOK Flush 10 mL Syringe IVFLUSH SCH ×3 (00:30→16:17)
[2017-04-14 02:24] LABS: MONOCYTES % (AUTO) 4.8 % (4-12); Mean Corpuscular Volume 78.3 fL (81-100); NEUTROPHILS % (AUTO) 88.2 % (40-74); Platelet Count 160 bil/L (150-400)
[2017-04-14 02:25] LABS: BASOPHILS % (AUTO) 0.3 % (0-3); EOSINOPHILS % (AUTO) 0.2 % (0-5)
[2017-04-14] MEDS: HYDROmorphone 1 mg/mL Inj IVPUSH PRN (02:36)
[2017-04-14] MEDS: Piperacillin-Tazo 3.375 Gm Inj 3.375 GM in Dextrose 5% Minibag Plus 50 ML IV SCH ×3 (02:37→18:44)
--- NOTE | 2017-04-14 02:59 | ABG ---
DateTimeAnalyzed 02:53:00 -_ pH ____7.440 - 7.350 7.450 pCO2 ___30.7__ -mmHg 35.0 45.0 pO2 100 -mmHg 69.0 116 HCO3- ___20.5__ -mmol/L 22.0 26.0 ABE ___-2.5__ -mmol/L -2.0 2.0 tHb ____9.2__ -g/dL O2Hb ___96.1__ -% COHb ____0.7__ -% MetHb ____0.7__ -% sO2 ___97.5__ -% 25.0 FIO2 ___35.0__ -% Set_RR ___51.0__ -b/min Vt __450.0__ -L Drawn By AF - Date/Time Notified____ 02:58:00 -_ Spontaneous_RR ___14.0__ -b/min Oxygen Device 1 ____BIPAP - Notified By AF - Notified Whom ___Dr. Quisumbing - B 760 -mmHg tO2 ___12.6__ -Vol% Zeke test _Positive -
[2017-04-14] MEDS ORDERED: Dexmedetomidine 400 mCg/100 mL NS Premix IV ONE (03:24)
[2017-04-14] MEDS ORDERED: fentaNYL 2,500 mCg/250 mL Premix IV ONE ×2 (03:25→13:51)
[2017-04-14] MEDS ORDERED: fentaNYL-PF 50 mCg/mL 2 mL Inj IV PRN (03:35)
[2017-04-14] MEDS ORDERED: fentaNYL 2,500 mCg/250 mL 2,500 MCG in IV Premix 1 EACH IV SCH (03:45)
[2017-04-14] MEDS: Vancomycin Inj 1,250 MG in 0.9% Sodium Chloride 250 ML IV SCH ×3 (03:50→20:04)
[2017-04-14] MEDS: Midazolam Inj 100 MG in IV Premix 1 EACH IV SCH ×2 (04:01→12:03)
[2017-04-14] MEDS: Chlorhexidine 0.12% 15 mL Oral Solution MT SCH ×5 (04:30→20:45)
--- NOTE | 2017-04-14 05:09 | PROCED ---
[address] [address] PROCEDURE NOTE PATIENT: BERNY OYUNG : 1965 MR#: [id number] ADMIT: 04/11/2017 JOB ID: [id number] DATE OF SERVICE: 04/14/2017 PROCEDURE NOTE/SUPERVISION NOTE: PREOPERATIVE DIAGNOSIS(ES): POSTOPERATIVE DIAGNOSIS(ES): SURGEON: Bhavik Palomares MD. PROCEDURE: Endotracheal intubation. DESCRIPTION OF PROCEDURE: I was called to the bedside to assist with an endotracheal intubation on a man with hyperpnea and impending respiratory failure. He clearly does require intubation. Supervised the medical reimbursement manager in the placement of an endotracheal tube. RSI procedure was reviewed in detail and preparations made for intubation first with a Al blade under direct vision. Standby glide scope was also available. The resident placed the tube with the glide scope after failing to acquire the cords with the Al blade. Patient was saturated throughout the procedure at 100%. I was present at all points pre and postprocedure and verified the placement of the tube with the glide scope, as well as by auscultation. X-ray is pending at this time. Care was returned to the Medicine Care team.
--- NOTE | 2017-04-14 05:24 | NUR ---
Pt was intubated at approx. 0330 after struggling to keep bipap on and resp. continue in the 40-50's. Pt is aggitated at times and is decompensating rapidly. Decision was made to intubate pt. Pt was given 20 mg etomidate and 160 mg of succs. Intubation successful with glide scope. Placement verified via cxr. Vent settings: 30/5/16/540. HR is slowly coming down. Torres inserted. OGT inserted and placement checked via auscultation. No bolus was given for PTT of 43 because pt was declining and intubation was needed at the time. Dr. Garcia stated that he would call the family. Pt appears more stable and will continue to monitor closely.
--- NOTE | 2017-04-14 06:14 | ABG ---
DateTimeAnalyzed 06:08:00 -_ pH ____7.449 - 7.350 7.450 pCO2 ___29.6__ -mmHg 35.0 45.0 pO2 ___73.6__ -mmHg 69.0 116 HCO3- ___20.2__ -mmol/L 22.0 26.0 ABE ___-2.7__ -mmol/L -2.0 2.0 tHb ____9.0__ -g/dL O2Hb ___93.5__ -% COHb ____0.8__ -% MetHb ____0.9__ -% sO2 ___95.1__ -% 25.0 FIO2 ___30.0__ -% PEEP ____5.0__ -cmH2O Set_RR ___16.0__ -b/min Vt __540.0__ -L Drawn By AF - Date/Time Notified____ 06:13:00 -_ Spontaneous_RR ___23.0__ -b/min Oxygen Device 1 VENTILATOR - Notified By AF - B 761 -mmHg tO2 ___11.9__ -Vol% Zeke test _Positive -
[2017-04-14] MEDS: 0.9% Sodium Chloride 1,000 ML IV SCH ×4 (06:49→22:18)
[2017-04-14] MEDS: Famotidine Inj 20 MG in IV Premix 1 EACH IV SCH ×2 (08:06→20:45)
[2017-04-14] MEDS: Vancomycin Dose per Pharmacist XX SCH (08:11)
--- NOTE | 2017-04-14 08:27 | DRSVH ---
PROCEDURE: X-RAY CHEST ONE VIEW, PORTABLE ([id number]) INDICATIONS: TUBE PLACEMENT TECHNIQUE: One view of the chest was acquired. COMPARISON: [facility], CT, CT ANGIO CHEST PE, 04/12/2017, 17:56. [facility] , CR, CHEST 1VW (PORTABLE), 02/23/2015, 4:53. FINDINGS: Surgical changes and devices: Endotracheal tube with the tip projecting 4 cm above the wilver. Cervic al spine fixation hardware as before. Lungs and pleura: There are multifocal areas of patchy consolidation. There is also retrocardiac opac ity, in keeping with the findings from recent chest CT dated 04/12/17 Mediastinum: Mediastinal contours appear normal. Heart size is normal. Bones and chest wall: No suspicious bony lesions. Overlying soft tissues appear unremarkable. IMPRESSION: Endotracheal tube with the tip projecting approximately 4 cm above the wilver. Redemonstration of bilateral multifocal consolidative opacities (probably similar to recent chest CT dated 04/12/17; please see report) Dictated by: Poli Vasquez M.D. on 04/14/2017 at 8:22 Approved by: Poli Vasquez M.D. on 04/14/2017 at 8:24
[2017-04-14] MEDS: Morphine ER 15 mg (MS Contin) Tablet PO SCH ×2 (08:30→16:17)
--- NOTE | 2017-04-14 08:50 | NUR ---
NUTRITION ASSESSMENT: ASSESS:51 YO male with a history of Hepatitic C, cellulitis, MRSA, IV meth and heroin admitted to the ED 04/11 with progressive pain and swelling over the right gluteal area over the past several days. He was transferred to CCU for BiPAP use last night; failing that was intubated at 1330 this morning. His blood cultures are positive for MRSA. There is also concern regarding possible septic joint vs. osteomyelitis in this patient with sepsis MRSA bacteremia. ECHO was done for new onset A-fib with RVR to rule out possible septic PE. BO pending to rule out endocarditis. PMHx:Hepatitis C, IV meth and heroin abuse, cellulitis, MRSA, opiate use, smoking. DIET:NPO. PO intake general diet past 2 days bites - 65% trays. LABS: Reviewed. Glu 122, Ca 7.4, BNP 8463, Procalcitonin 3.47. MEDICATIONS: Reviewed. Fentanyl, versed, ativan. NUTRITION FOCUSED PHYSICAL ASSESSMENT: GI symptoms / stool: No stool reported x 3 D.Colin: 15. Skin Integrity: No additional issues reported. ANTHROPOMETRICS: Current Wt: 87.3 kgBMI: 25.0 kg/m2.Admit weight: 77.27 kg IBW: 83.64 kg (92% IBW) ESTIMATED NEEDS (POSS. OSTEOMYELITIS, UNDERWEIGHT): Calories: 2318 - 2704 kcal (30 - 35 kcal / kg BW) Protein: 93 - 116 g protein (1.2 - 1.5 g / kg BW) Fluid: Approx. 2705 mL (35 mL / kg BW) NUTRITION DIAGNOSIS: 1)Inadequate oral intake related to inability to consume sufficient energy, as evidenced by NPO / vent status. 2)Increased nutrient needs related to potential osteomyelitis, underweight status with no recent history of weight loss, as evidenced by 83.64% IBW. INTERVENTION: 1) Enteral feeding recommendation follows, unsigned orders in chart for provider authorization. Recommend Jevity 1.5 initiated at trophic rate 10 mL/hr x 8 hr. Once tolerance established, recommend advance 10 ml every 4 hr. to goal rate 75 mL/hr. Flush dose 40 mL H2O every 4 hrs. Enteral feeding at goal will provide 2475 kcal, 106 g protein, which will meet approx. 100% patient's nutrient needs. MONITOR/EVALUATE: NPO / vent status, labs, enteral feeding initiation / advance / tolerance, GI status. Follow up per high nutrition risk guidelines. Addendum: 04/14/17 at [address] Wound consult initiated related to Colin score 12; evaluation pending. Will follow for potential requirement for supplements.
[2017-04-14] MEDS: Heparin 5,000 Unit/mL Inj IVPUSH PRN (12:01)
--- NOTE | 2017-04-14 15:49 | PCM.PNMED ---
Subjective Date of Service Apr 14, 2017 Subjective That 51-year-old male who has a history of hepatitis C, cellulitis, MRSA and is IV methamphetamine user who presents with soft tissue infection of right gluteal area, found to have high-grade MRSA bacteremia, pneumonia. Expressed respiratory distress overnight on 04/13. Resulted in intubation. Patient is currently sedated. Exam Vital Signs Vital Sign - Last Date Time Temp Pulse Resp B/P Pulse Ox O2 Delivery O2 Flow Rate FiO2 04/14/17 15:26 Ventilator 04/14/17 15:26 39.5 97 28 93/46 100 30 04/13/17 20:22 3.00 Intake and Output 04/13/17 04/13/17 04/14/17 Cumulative From/Thru 15:00 23:00 07:00 04/11/17 06:10 - 04/14/17 06:25 Intake Total 4468 ml 2313 ml 913 ml 92873 ml Output Total 1250 ml 1050 ml 800 ml 5950 ml Balance 3218 ml 1263 ml 113 ml 8315 ml Intake Oral 400 ml 1000 ml 3250 ml IV Total 4068 ml 1313 ml 913 ml 20075 ml Output Urine Total 1250 ml 1050 ml 800 ml 5950 ml # Bowel Movements 0 0 0 0 Exam General: Essentially healthy-appearing, sedated HEENT: sclerae anicteric Neck: no JVD Chest: clear to auscultation Cardiac: S1S2, II/ systolic murmur at LUSB Abdomen: BS normal, not rigid Extremities: Swelling in right gluteal area without drainage or fluctuance Neuro: Obtunded, pinpoint pupils, eyes conjugate, face symmetric IVs and Medications Medications Reviewed: Medications were reviewed in detail Lab and Diagnostics Result Diagram: 04/14/1720904/14/17209 X-Rays, CTs and MRIs PROCEDURE: CT ABDOMEN AND PELVIS WITH CONTRAST ([id number]) IMPRESSION: 1. Bilateral perinephric stranding suggesting pyelonephritis. No renal stone or hydronephrosis. 2. Mild stranding in the area of the tail of the pancreas, which may be secondary to spread of inflammation/infection from the left kidney or focal pancreatitis. 3. Small right pleural effusion. 4. Trace pericardial effusion. 5. The right gluteus muscle is enlarged and demonstrates low attenuation with somewhat heterogeneous enhancement suggesting myositis. 6. Subcutaneous edema and fluid over right gluteus muscle. There is a small fluid collection over the right greater trochanter which could represent septic greater trochanteric bursal fluid. Ultrasound-guided fluid aspiration may be performed if clinically indicated. 7. Mild hepatomegaly. Dictated by: Amanda Méndez M.D. on 04/11/2017 at 8:31 PROCEDURE: US EXTREMITY SONOGRAM LIMITED ([id number]) IMPRESSION: No drainable fluid collection is identified. There is diffuse soft tissue edema. Dictated by: Amanda Méndez M.D. on 04/11/2017 at 11:39 PROCEDURE: MRI PELVIS WITH AND WITHOUT CONTRAST ([id number]) IMPRESSION 1. Abnormal edema and enhancement of the right gluteus missy muscle consistent with myositis with a large multiloculated intramuscular abscess collection demonstrated. Given the numerous internal loculations, percutaneous aspiration would likely not be effective. 2. No definite evidence of osteomyelitis or septic arthritis. 3. Small amount of intraperitoneal free fluid in the pelvis is nonspecific. Dictated by: Bogdan Moya M.D. on 04/13/2017 at 17:09 PROCEDURE: CT ANGIO CHEST PULMONARY EMBOLISM ([id number]) IMPRESSION: 1. No central pulmonary embolism, with evaluation of distal subsegmental branches limited by motion artifact. 2. Multiple bilateral small areas of consolidation peripherally highly suspicious for septic emboli. The differential includes atypical infections or possible inflammatory processes. 3. Small bilateral pleural effusions with associated compressive atelectasis. 4. Enlargement of the pulmonary arteries suggesting pulmonary arterial hypertension. 5. Mild enlargement of mediastinal lymph nodes are likely reactive. Dictated by: Bogdan Moya M.D. on 04/12/2017 at 18:41 PROCEDURE: X-RAY CHEST ONE VIEW, PORTABLE ([id number]) IMPRESSION: Endotracheal tube with the tip projecting approximately 4 cm above the wilver. Redemonstration of bilateral multifocal consolidative opacities (probably similar to recent chest CT dated 04/12/17; please see report) Dictated by: Poli Vasquez M.D. on 04/14/2017 at 8:22 . Cardiac Echo Impressions Echocardiogram Report Name: BERNY YOUNG Study Date 04/12/2017 Interpretation Summary The patient was in atrial fibrillation with rapid ventricular response during the exam with a heart rate exceeding 100 bpm. The heart rate ranged between 118-149 bpm during the study. The ejection fraction is estimated to be 55-60%. The right ventricle is grossly normal size. Right ventricular systolic function is at the lower limits of normal. There is mild tricuspid regurgitation. The right ventricular systolic pressure is estimated at 28 mmHg assuming a right atrial pressure of 8 mm Hg. . Assessment & Plan That 51-year-old male who has a history of hepatitis C, Cellulitis, MRSA and is IV methamphetamine user who presents to the emergency room with progressive pain and swelling over the right gluteal area over the past several days. He denies any fevers chills. Denies any chest pain, shortness of breath. His blood cultures are positive for MRSA in all bottles. We are also concerned about a possible septic joint vs. osteomyelitis. Acute respiratory failure, not present on admission. Respiratory distress on unclear origin, as he was not hypoxic or hypercarbic. He did not tolerate BiPAP well. Underlying respiratory pathology is likely related to septic embolic pneumonia. - Mechanical ventilation - Sedation holiday on spontaneous breathing trials - Vent management per pulmonary ICU service - Likely to remain intubated until 04/16 for performance of transesophageal echocardiogram Sepsis MRSA Bacteremia, acute, present on admission. Active. Right gluteal abscess. Probably septic embolic pneumonia. Concern for probable endocarditis. Sepsis criteria is met by significantly elevated white count 36.4 , lactic acid 4.3 and tachycardia HR 113, temperature 39.5 within 24 hours of admission. Three sets of blood cultures all positive for MRSA. Procalcitonin 6.24. Transthoracic echocardiogram unremarkable. Persistent fevers. - Vancomycin - Cardiology consult for BO - Continue IV fluid hydration. - Dr. Vega infectious disease consulted. - Scheduled Tylenol 24 hours on 04/14 RVR A. fib, acute, not present on admission. Heart rate has responded to nadege blockade. - Diltiazem ggt to PO 30mg Q6H. - Metoprolol Acute diastolic congestive heart failure, present on admission. Due to rapid atrial fibrillation. ProBNP is 8963. - Rate control of atrial fibrillation - Hold on diuresis while patient is septic unless evidence of overt fluid overload Elevated troponin, present on admission. Patient had no chest pain. EKG is unremarkable. Serial troponins of 0.06, 0.073, 0.082 do not suggest acute ischemic event. Likely cardiac strain related to A. fib RVR. - No workup for ischemic coronary disease at this time - Discontinue heparin due to risk of bleeding from septic emboli Polysubstance drug abuse, chronic, present on admission. Active. He has had no Monitor for withdrawal symptoms. Patient reports last heroin use 1 month prior to admission. Reports more methamphetamine, intravenous not intramuscular - Continue home opioid analgesic medication regimen. Replace with IV fentanyl while on ventilator - information services assistant consult for chemical dependence. Hepatitis C virus, chronic. HCV antibody positive. There are no quantitation pending. Transaminases unremarkable - Follow clinically DVT prophylaxis - SCDs and now on IV heparin drip cardiac protocol. CODE STATUS - Full code Acetaminophen for mild pain when necessary. Bowel regimen Senna and MiraLAX scheduled and PRN. Zofran when necessary for nausea and vomiting. High-risk medications: IV Dilaudid. Vancomycin Disposition: Likely here for > 2 midnights. Dependent upon IV antibiotics and osteomyelitis. Will be discharged to home when medically stable. Pain Evaluation: Adequate Pain Control VTE Prophylaxis: Sub-Q Enoxaparin Resuscitation Status: CPR: Attempt Resuscitation Time spent 45 minutes Teofilo Al MD Apr 14, 2017 15:49
--- NOTE | 2017-04-14 15:58 | NUR ---
Pt intubated - unable to sign PRISCILLA. SW called spouse who is not accepting calls at this time. Unable to leave voicemail.
[2017-04-14] MEDS: Acetaminophen 32.5 mg/mL 20 mL Liquid PO SCH ×2 (16:05→22:17)
--- NOTE | 2017-04-14 16:20 | CONS ---
[address] [address] CONSULTATION REPORT PATIENT: BERNY YOUNG : 1965 MR#: [id number] ADMIT: 04/11/2017 JOB ID: [id number] PULMONARY CRITICAL CARE CONSULTATION: DATE OF SERVICE: 04/14/2017 REQUESTING PHYSICIAN: Teofilo Al MD REASON FOR CONSULTATION: 1. Bacteremia, MRSA and bacillus. 2. Respiratory failure. HISTORY OF PRESENT ILLNESS: The patient is a 51-year-old, male, who presented on April 11, 2017 with pain and swelling in the right gluteal area over the past few days. Past history of hepatitis C, cellulitis, MRSA, IV amphetamine user. He denied fever or chills. No chest pain or shortness of breath. Denies injecting into his buttock area. History of opioid dependence. The patient was admitted to the medical [facility]. Exam described as lungs clear to auscultation. Regular heart rate and rhythm with a II/ systolic ejection murmur. Described as having "induration", no erythema and tenderness and edema over the right buttock area extending to the lateral hip area." White count on admission was 36,400. CT scan of the abdomen showed bilateral perinephric stranding suggesting pyelonephritis, mild stranding in tail of pancreas. Small right pleural effusion. Trace pericardial effusion. Enlargement of the right gluteus muscle with heterogeneous enhancement suggesting myositis. The patient was treated with IV Zosyn and IV vancomycin after three sets of blood cultures were obtained. The next day, he was described as having continued pain in the right gluteal area. Was described as being afebrile. Developed atrial fibrillation associated with some chest pain. There was mild elevation of serial troponins. Heparin infusion was initiated. Given IV metoprolol and started on metoprolol 25 mg p.o. b.i.d. Yesterday, he was described as reporting IV heroin use one month ago with IV methamphetamine use twice in the last two weeks. Denies sharing needles. Only injects in the right antecubital fossa. Denies risk for withdrawal to alcohol or other drugs. Smokes a pack a day for the past 20 years. Ultrasound of the right gluteal area showed marked soft tissue edema without drainable fluid collection. That evening, nurses describe patient is sleeping most of the day. Some anxiety. Subsequent nursing note describes the patient being transferred to the Intensive Care Unit for respiratory distress with respiratory rate in the 50s, heart rate in the 120s. Subsequent note describes the patient struggling to keep BiPAP on, agitated at times. Patient intubated after being given etomidate and succinylcholine. Currently the patient is sedated with fentanyl 200 mcg an hour and Versed at 7 mg an hour. PAST MEDICAL HISTORY: Unable to obtain. REVIEW OF SYSTEMS: Unable to obtain. OBJECTIVE: Temperature 37.9. Pulse 97. Monitor shows sinus mechanism. Blood pressure 100/57. O2 sat on FiO2 of 30%, PEEP of 5 is 98% to 100%. I and O the past 24 shows 6.7 L in, 2.3 L out. Patiently currently 8 L positive over the past three days. General appearance: Sedated on the ventilator. Eyes: Conjunctivae are pink. No scleral icterus. Pupils 1-2 mm. Chest: Fairly good breath sounds bilaterally. Lung goodson are relatively clear. Heart: Regular rhythm. Heart tones normal. Abdomen is soft. Nondistended. Quiet. Extremities: No pretibial edema. There are some old tracks in the right antecubital fossa. LABORATORY DATA: Shows a white count of 39,100 with 88 polymorphonuclears, 2 bands, 4 lymphocytes, 4 monocytes. Hemoglobin stable at 10.3. Platelet count decreased to a earnest of 139,000, from a peak of 305,000 on admission. Currently some rebound to 160,000 from 139,000 yesterday. Sodium 135, potassium 4, chloride 99, CO2 is 20. BUN 21 creatinine 0.9. Lactic acid is 1.8. Calcium 7.4. Albumin 1.7 yesterday. Procalcitonin 3.47, maybe slightly decreased from a level of 6.24 yesterday. Yesterday, total bilirubin normal, AST mildly elevated at 91, ALT normal at 28, alkaline phos 228. PTT 40.5 on cardiac dosing heparin. Hepatitis B evaluation negative. Hepatitis C antibodies positive. HIV nonreactive. Blood cultures growing methicillin-resistant Staph aureus with resistance to cefazolin, clindamycin, erythromycin and oxacillin. Sensitive to ceftaroline, daptomycin, linezolid and vancomycin with vancomycin CRISSY being 1. Arterial blood gases this morning on FiO2 of 0.38, PEEP of 5, tidal volume of 540 and rate of 16 shows a pO2 of 73, pCO2 of 29, pH 7.44. Unable to evaluate pulmonary mechanics as the patient is over-breathing machine with a rate in the mid 20s. Recent blood cultures not only include 5/5 bottles collected being positive for MRSA, 4/5 bottles collected are positive for bacillus species not anthrax. IMAGING: CT of the chest shows no central pulmonary embolism. There are multiple bilateral areas of consolidation peripherally with suggestion of central cavitation suspicious for septic emboli. There is a small effusion on the left; maybe a bit more on the right, possibly with some loculation of its superior aspect on the right. ASSESSMENT: 1. Respiratory failure. Suspect that this is all due to sepsis. Seems to have septic emboli, likely Staphylococcus aureus, on appropriate antibiotics now including vancomycin, piperacillin. In most studies, bacillus has been sensitive to vancomycin, rather resistant to the beta lactams. Vancomycin should be able for the moment to cover both the MRSA as well as the bacillus. 2. Although most bacillus blood cultures are felt to be contaminants, 4/5 blood cultures being positive for bacillus argue strongly for a bacillus bacteremia which is associated with IV drug abuse as well as implanted hardware both of which are patient has. Spoke with the patient's grandmother. Apparently he is into a number of drugs, also heavy drinking is on the scene as well. 3. The patient with ventilatory failure now. I suspect much of it is work of breathing due to his sepsis. There is some ventilation perfusion mismatching with a mildly to moderately elevated (A-a) DO2 gradient. 4. In addition, there is likely withdrawal. Could be withdrawing from a number of substances including alcohol as well as a number of other sympathomimetic toxidrome associated substances. Likely superimposed opiate use as well. Does have a prescription for opiates and whether they are being over-consumed or not is unclear, or being supplemented with any illegal supply. 5. Malnutrition. Albumin rather low. Will need to watch that especially if we start developing problems with hypertension or edema. PLAN: 1. Continue current vent settings. 2. Check with Infectious Disease regarding isolation. Literature suggests that the hand sanitizers may not be adequate for bacillus as it is and handwashing may be required. Thank you so much, Dr. Al, for asking the Pulmonary service to see this most critically ill individual. Will follow his respiratory as well as hemodynamic status closely along with you.
[2017-04-14] MEDS: Heparin 5,000 Unit/mL Inj SUBQ SCH (16:26)
--- NOTE | 2017-04-14 16:51 | NUR ---
P: Resp, Cardiac, Neuro, Social I,E: Pt continues on the vent, RR at times up to the 50's roger when agitated. Small to scant secretions suctioned out of ETT sats 99-100%. Pt is in SR with PAC's although those are less frequent this afternoon. BP has been stable, although does drop down occ to the low 90's. Pt is sedated with versed and fentanyl but is easily woken and when awake becomes very agitated and restless, attempting to reach for ETT. He is reassured and re-oriented but this does not seem to help as much as bolus of versed . Pt's family are very supportive and has spoken with his Mother today and I have updated his via phone call. Pt temp is elevated this afternoon up to 39.5, MD was notified and tylenol given. Antibiotics continue, no new cultures ordered. wound consult was ordered today to check pt's skin for lower Colin score now he is inutbated and to check his elbows. Heparin gtt was DC'd and hep SQ was started today.
[2017-04-14] MEDS: Diltiazem Inj 125 MG in Dextrose 5% 100 ML IV SCH (22:18)
[2017-04-15] VITALS (14 sets, daily range): BP systolic 78–146; BP diastolic 45–92; PULSE 72–163; RESP 16–29; O2SAT 94–100
[2017-04-15] MEDS: Chlorhexidine 0.12% 15 mL Oral Solution MT SCH ×6 (00:12→21:13)
[2017-04-15] MEDS: Heparin 5,000 Unit/mL Inj SUBQ SCH ×3 (00:12→16:52)
[2017-04-15] MEDS: Sodium Chloride LOK Flush 10 mL Syringe IVFLUSH SCH ×4 (00:13→21:13)
[2017-04-15] MEDS: Piperacillin-Tazo 3.375 Gm Inj 3.375 GM in Dextrose 5% Minibag Plus 50 ML IV SCH ×3 (02:00→18:35)
[2017-04-15] MEDS: Midazolam Inj 100 MG in IV Premix 1 EACH IV SCH ×2 (02:26→13:09)
[2017-04-15] MEDS: Vancomycin Inj 1,250 MG in 0.9% Sodium Chloride 250 ML IV SCH ×3 (03:31→21:14)
[2017-04-15 04:12] LABS: BASOPHILS % (AUTO) 0.3 % (0-3); EOSINOPHILS % (AUTO) 0.5 % (0-5); MONOCYTES % (AUTO) 8.2 % (4-12); Mean Corpuscular Hemoglobin 26.5 pg (27.0-35.0); Mean Corpuscular Volume 79.4 fL (81-100); NEUTROPHILS % (AUTO) 83.9 % (40-74)
[2017-04-15] MEDS: Acetaminophen 32.5 mg/mL 20 mL Liquid PO SCH ×3 (04:19→16:52)
[2017-04-15] MEDS: fentaNYL 2,500 mCg/250 mL 2,500 MCG in IV Premix 1 EACH IV PRN ×2 (04:20→18:32)
[2017-04-15 04:28] LABS: Platelet Count 150 bil/L (150-400)
[2017-04-15] MEDS: 0.9% Sodium Chloride 1,000 ML IV SCH ×2 (07:26→12:07)
[2017-04-15] MEDS: Famotidine Inj 20 MG in IV Premix 1 EACH IV SCH ×2 (07:48→21:13)
[2017-04-15] MEDS: Morphine ER 15 mg (MS Contin) Tablet PO SCH ×2 (07:49→19:46)
[2017-04-15] MEDS: Vancomycin Dose per Pharmacist XX SCH (08:30)
--- NOTE | 2017-04-15 12:13 | DRSVH ---
PROCEDURE: X-RAY CHEST ONE VIEW, PORTABLE ([id number]) INDICATIONS: 51 year-old male with bacteremia. TECHNIQUE: One view of the chest was acquired. COMPARISON: [facility], CT, CT ANGIO CHEST PE, 04/12/2017, 17:56. [facility] , CR, XR CHEST 1VW (PORTABLE), 04/14/2017, 3:16. [facility], CR, CHEST 1VW (PORTABLE), 05/2015, 4:53. [facility], CR, CHEST 2VW, 12/08/2008, 12:09. FINDINGS: Surgical changes and devices: Endotracheal tube remains in expected position. New nasogastric tube is present, with tip in the gastric body. Cervical spine fixation hardware is incompletely visualized. Lungs and pleura: Bilateral pulmonary nodules with ill-defined borders are again noted. No pleural ef fusions or pneumothorax. Mediastinum: Mediastinal contours appear normal. Heart size is normal. Bones and chest wall: No suspicious bony lesions. Overlying soft tissues appear unremarkable. IMPRESSION: Findings suspicious for bilateral septic emboli, decreased in overall conspicuity since J momo 2016. Dictated by: Portillo Zepeda M.D. on 04/15/2017 at 12:08 Approved by: Portillo Zepeda M.D. on 04/15/2017 at 12:10
--- NOTE | 2017-04-15 12:17 | PROG NOTE ---
[address] [address] PROGRESS NOTE PATIENT: BERNY YOUNG : 1965 MR#: [id number] ADMIT: 04/11/2017 JOB ID: [id number] DATE: 04/15/2017 PULMONARY CRITICAL CARE FOLLOWUP NOTE: PROBLEM LIST: 1. MRSA bacteremia. 2. Bacillus (non anthrax) bacteremia. 3. Polysubstance abuse, probably methamphetamine and alcohol. SUBJECTIVE: None. OBJECTIVE: Temperature 36.7. Pulse mid 70s. Respiratory rate 21-33. Blood pressure 101/62. O2 sat on FiO2 of 30% PEEP of 5 is 96% to 100%. I and O shows 3.3 L in, 1.5 L out. Cumulative I and O is about 10 L positive in the last four days. General appearance: Sedated. Somewhat agitated when nursing care ongoing. Chest: Somewhat diminished breath sounds. Lung goodson clear anteriorly. Unable to obtain pulmonary mechanics as the patient is actively breathing, currently with respiratory rates in the low 30s as he is being turned in bed. Heart: Regular rhythm. Heart tones normal. Abdomen: Soft. Maybe slightly distended. A few bowel tones noted. Extremities: No pretibial edema. LABORATORY DATA: Shows a white count of 23,500, down from 39,100 yesterday. There is a marked neutrophilia with 83 polymorphonuclears, no bands, 5 lymphocytes. Hemoglobin 7.6, down from 10.3 at 25 hours previously. Platelet count 152,000. Sodium 140, potassium 3.7, chloride 109, CO2 is 17, BUN 22, creatinine 0.96, glucose 119, calcium 7.1. Cultures from April 11 growing MRSA. Cultures from a culture of the elbow described as "gel swab" growing MRSA with a different antibiogram as the elbow MRSA sensitive to clindamycin. ASSESSMENT: 1. MRSA bacteremia along with Bacillus bacteremia. On seemingly appropriate antibiotics with the vancomycin. Would continue same. White count has fallen somewhat. Somewhat interesting, though not sure of the implications of the MRSA being a slightly different antibiogram on the elbow and the blood, with the elbow organism being sensitive to clindamycin. In any case, would continue with vancomycin. 2. Withdrawal syndrome. Likely alcohol and methamphetamine. Patient down to about 3 of midazolam (7 mg yesterday) and fentanyl at 125 mcg an hour (200 mcg an hour yesterday). Apparently behavior better controlled when he is not being interacted with. 3. Hyperchloremia. Likely due to the saline. He is now about 10 L positive. Might consider switching to lactated Ringer's. Will assess to make sure we are not dealing with a gap acidosis. 4. Patient/ventilator asynchrony. The patient is overbreathing the ventilator. Inspiratory flow was somewhat low. Will increase the inspiratory flow and see if that helps with his breathing. May want a bigger breath as well. Will need to speak with RT about what his mL/kg tidal volume is at this point. PLAN: 1. Consider decreasing inspiratory time to 0.75 seconds. 2. ABGs. 3. Chest x-ray. 4. Stat H and H (hemoglobin has apparently dropped from 10.3 to 7.6 g/dL in the last 25 hours). TIME: Time spent so far in critical care 47 minutes.
--- NOTE | 2017-04-15 13:22 | ABG ---
DateTimeAnalyzed 13:13:25 -_ pH ____7.420 - 7.350 7.450 pCO2 ___32.9__ -mmHg 35.0 45.0 pO2 ___92.4__ -mmHg 69.0 116 HCO3- ___21.4__ -mmol/L 22.0 26.0 ABE ___-2.9__ -mmol/L tHb ____8.2__ -g/dL O2Hb ___96.8__ -% COHb ____1.7__ -% 1.5 MetHb ____0.0__ -% sO2 ___98.4__ -% FIO2 ___30.0__ -% PRVC 500 - PEEP ____5.0__ -cmH2O Set_RR 16 -b/min Drawn By NB - Date/Time Notified____ 13:21:00 -_ Spontaneous_RR 22 -b/min Oxygen Device 1 VENTILATOR - Notified By NB - Notified Whom DR Kendregan - K+ ____3.6__ -mmol/L tO2 ___11.3__ -Vol% Zeke test _Positive -
--- NOTE | 2017-04-15 13:51 | PCM.PNMED ---
Subjective Date of Service Apr 15, 2017 Subjective That 51-year-old male who has a history of hepatitis C, cellulitis, MRSA and is IV methamphetamine user who presents to the emergency room with progressive pain and swelling over the right gluteal area over the past several days. He denies any fevers chills. Denies any chest pain, shortness of breath. Patient denies injecting into his buttock area. His evaluation in the emergency room shows a significantly elevated white count and tachycardia. He also has a history of opioid dependence. He reports most recent IV Heroin use 1 month ago, most recently injected meth 2x in the last 2 weeks. He denies sharing needles. He only injects in the right ante-cubital fossa. He denies risk for withdrawal to ETOH or other drugs. He smokes 1/2 - 1 pack per day for >20 years. He reports fever and Tenderness in the RUQ. Overnight 04/13 to 04/14 patient was reported to be tachypneic. ABG were normal and O2 sats were normal. Patient was intubated for airway-safety. Since then he remains intubated and sedated and will remain that way till his BO 04/16/17. Exam Vital Signs Vital Sign - Last Date Time Temp Pulse Resp B/P Pulse Ox O2 Delivery O2 Flow Rate FiO2 04/15/17 12:04 Ventilator 04/15/17 12:02 86 90/61 100 30 04/15/17 11:32 37.1 29 04/13/17 20:22 3.00 Intake and Output 04/14/17 04/14/17 04/15/17 Cumulative From/Thru 15:00 23:00 07:00 04/11/17 06:10 - 04/15/17 06:16 Intake Total 2420 ml 2109 ml 68607 ml Output Total 750 ml 750 ml 7450 ml Balance 1670 ml 1359 ml 69907 ml Intake Oral 3250 ml IV Total 2420 ml 2109 ml 61663 ml Output Urine Total 700 ml 750 ml 7400 ml Gastric Drainage Total 50 ml 0 ml 50 ml # Bowel Movements 0 0 0 Exam Constitutional: intubated and sedated. Head: Normocephalic atraumatic Eyes: PERRLA DC EOMI mouth: Poor dentition Neck: No adenopathy Chest: Clear to auscultation Cor: Regular rate and rhythm S1-S2 with 2/6 systolic ejection murmur Abdomen: Soft nontender bowel sounds present Extremities: No pedal edema Back: Patient does have induration no erythema and tenderness and edema noted over his right buttock area extending to lateral hip area. Skin: No rashes except as noted above Neuro: intubated and sedated. Lab and Diagnostics Result Diagram: 04/15/1732904/15/17329 X-Rays, CTs and MRIs PROCEDURE: CT ABDOMEN AND PELVIS WITH CONTRAST ([id number]) IMPRESSION: 1. Bilateral perinephric stranding suggesting pyelonephritis. No renal stone or hydronephrosis. 2. Mild stranding in the area of the tail of the pancreas, which may be secondary to spread of inflammation/infection from the left kidney or focal pancreatitis. 3. Small right pleural effusion. 4. Trace pericardial effusion. 5. The right gluteus muscle is enlarged and demonstrates low attenuation with somewhat heterogeneous enhancement suggesting myositis. 6. Subcutaneous edema and fluid over right gluteus muscle. There is a small fluid collection over the right greater trochanter which could represent septic greater trochanteric bursal fluid. Ultrasound-guided fluid aspiration may be performed if clinically indicated. 7. Mild hepatomegaly. Dictated by: Amanda Méndez M.D. on 04/11/2017 at 8:31 PROCEDURE: US EXTREMITY SONOGRAM LIMITED ([id number]) IMPRESSION: No drainable fluid collection is identified. There is diffuse soft tissue edema. Dictated by: Amanda Méndez M.D. on 04/11/2017 at 11:39 PROCEDURE: MRI PELVIS WITH AND WITHOUT CONTRAST ([id number]) IMPRESSION 1. Abnormal edema and enhancement of the right gluteus missy muscle consistent with myositis with a large multiloculated intramuscular abscess collection demonstrated. Given the numerous internal loculations, percutaneous aspiration would likely not be effective. 2. No definite evidence of osteomyelitis or septic arthritis. 3. Small amount of intraperitoneal free fluid in the pelvis is nonspecific. Dictated by: Bogdan Moya M.D. on 04/13/2017 at 17:09 PROCEDURE: CT ANGIO CHEST PULMONARY EMBOLISM ([id number]) IMPRESSION: 1. No central pulmonary embolism, with evaluation of distal subsegmental branches limited by motion artifact. 2. Multiple bilateral small areas of consolidation peripherally highly suspicious for septic emboli. The differential includes atypical infections or possible inflammatory processes. 3. Small bilateral pleural effusions with associated compressive atelectasis. 4. Enlargement of the pulmonary arteries suggesting pulmonary arterial hypertension. 5. Mild enlargement of mediastinal lymph nodes are likely reactive. Dictated by: Bogdan Moya M.D. on 04/12/2017 at 18:41 PROCEDURE: X-RAY CHEST ONE VIEW, PORTABLE ([id number]) IMPRESSION: Endotracheal tube with the tip projecting approximately 4 cm above the wilver. Redemonstration of bilateral multifocal consolidative opacities (probably similar to recent chest CT dated 04/12/17; please see report) Dictated by: Poli Vasquez M.D. on 04/14/2017 at 8:22 . Cardiac Echo Impressions Echocardiogram Report Name: BERNY YOUNG Study Date 04/12/2017 Interpretation Summary The patient was in atrial fibrillation with rapid ventricular response during the exam with a heart rate exceeding 100 bpm. The heart rate ranged between 118-149 bpm during the study. The ejection fraction is estimated to be 55-60%. The right ventricle is grossly normal size. Right ventricular systolic function is at the lower limits of normal. There is mild tricuspid regurgitation. The right ventricular systolic pressure is estimated at 28 mmHg assuming a right atrial pressure of 8 mm Hg. . Assessment & Plan That 51-year-old male who has a history of hepatitis C, Cellulitis, MRSA and is IV methamphetamine user who presents to the emergency room with progressive pain and swelling over the right gluteal area over the past several days. He denies any fevers chills. Denies any chest pain, shortness of breath. His blood cultures are positive for MRSA in all bottles. We are also concerned about a possible septic joint vs. osteomyelitis. Acute respiratory failure, not present on admission. Respiratory distress on 04/13 unclear origin, as he was not hypoxic or hypercarbic. He did not tolerate BiPAP well. Underlying respiratory pathology is likely related to septic embolic pneumonia. - Mechanical ventilation - Sedation holiday on spontaneous breathing trials daily. - Vent management per pulmonary ICU service - Likely to remain intubated until 04/16 for performance of transesophageal echocardiogram - Repeat Chest Xray. Sepsis MRSA Bacteremia, acute, present on admission. Active. Right gluteal abscess. Probably septic embolic pneumonia. Concern for probable endocarditis. Sepsis criteria is met by significantly elevated white count 36.4, lactic acid 4.3 and tachycardia HR 113, temperature 39.5 within 24 hours of admission. Three sets of blood cultures all positive for MRSA. Procalcitonin 6.24. Transthoracic echocardiogram unremarkable. Persistent fevers. - Vancomycin - Cardiology consult for BO - Continue IV fluid hydration. - Dr. Vega infectious disease consulted. - Scheduled Tylenol 24 hours on 04/14 RVR A. fib, acute, not present on admission. Heart rate has responded to nadege blockade. - Diltiazem ggt to PO 30mg Q6H. - Metoprolol Acute diastolic congestive heart failure, present on admission. Due to rapid atrial fibrillation. ProBNP is 8963. - Rate control of atrial fibrillation - Hold on diuresis while patient is septic unless evidence of overt fluid overload Elevated troponin, present on admission. Patient had no chest pain. EKG is unremarkable. Serial troponins of 0.06, 0.073, 0.082 do not suggest acute ischemic event. Likely cardiac strain related to A. fib RVR. - No workup for ischemic coronary disease at this time - Discontinue heparin due to risk of bleeding from septic emboli Polysubstance drug abuse, chronic, present on admission. Active. He has had no Monitor for withdrawal symptoms. Patient reports last heroin use 1 month prior to admission. Reports more methamphetamine, intravenous not intramuscular - Continue home opioid analgesic medication regimen. Replace with IV fentanyl while on ventilator - office services assistant consult for chemical dependence. Hepatitis C virus, chronic. HCV antibody positive. There are no quantitation pending. Transaminases unremarkable - Follow clinically DVT prophylaxis - SCDs and now on IV heparin drip cardiac protocol. CODE STATUS - Full code Acetaminophen for mild pain when necessary. Bowel regimen Senna and MiraLAX scheduled and PRN. Zofran when necessary for nausea and vomiting. High-risk medications: IV Dilaudid. Vancomycin Disposition: Likely here for > 2 midnights. Dependent upon IV antibiotics and osteomyelitis. Will be discharged to home when medically stable. Pain Evaluation: Adequate Pain Control VTE Prophylaxis: Sub-Q Enoxaparin Resuscitation Status: CPR: Attempt Resuscitation Time spent 45 minutes Attending Statement I interviewed and examined the patient on rounds today. Difficult to provide adequate sedation on ventilator, control of rapid A. fib. He will require neuromuscular paralysis in addition to high-level sedation. I agree with the assessment and plan as stated above. EMMETT VALDIVIA DO Apr 15, 2017 13:43 Teofilo Al MD Apr 15, 2017 17:38
--- NOTE | 2017-04-15 15:31 | NUR ---
Respiratory/cardiac/sedation Continues on PRVC with 30% fi02 and 5 of PEEP. Minimal secretions with ET suction. Fentanyl and versed gtt continued for sedation and pain management. Unsuccessful at weaning patient at this time, RR increased to 40s to 50s and increased agitation noted when sedation lightened. Afebrile. Atrial fibrillation per cardiac mointor, HR 80s to 90s. Pressure remains slightly low; however, MAP maintained in the 60s. Torres to DD with adequate output. Blood glucose controlled. Daughter at bedside. Will continue to monitor.
[2017-04-15] MEDS ORDERED: Cisatracurium Inj 200,000 MCG in 0.9% Sodium Chloride 100 ML, Pharmacy To Mix 1 EA IV ONE (16:15)
[2017-04-15] MEDS ORDERED: Cisatracurium 2,000 mCg/mL 10 mL Inj ONE (16:16)
--- NOTE | 2017-04-15 17:34 | NUR ---
SVT/agitation/respiratory Increased agitation noted shortly after 16:00 this afternoon. Tachypneic, RR 50s. Desaturating down into the low 90s on 30% fi02. Hypertensive. SVT per mobile developer, HR 150s to 170s. Cardizem gtt restarted for rate control. Versed and fentanyl gtts infusing at maximum rate. No improvement noted with 2mg IV ativan or fentanyl bolus. Dr Al and Dr Burger notified of change in patient status. Nimbex bolus and gtt ordered and initiated. Paralyzed with nimbex. Train of four /. BIS 46. Fentanyl and versed gtts continued. SVT continued in the 150s to 160s. MAP 80s to 90s. Cardizem gtt infusing at 15mg/hr. Dr Al notified of elevated rate, esmolol gtt ordered. Will continue to monitor.
[2017-04-15] MEDS: Esmolol 2,500 mg/250 mL NS 2,500,000 MCG in IV Premix 1 EACH IV SCH (18:08)
[2017-04-15] MEDS: Diltiazem Inj 125 MG in Dextrose 5% 100 ML IV SCH (19:46)
--- NOTE | 2017-04-15 20:56 | PCM.PROC ---
Procedure Note Date of Service: Apr 15, 2017 Pre Procedure Diagnosis: Septic shock Procedure: Internal Jugular Central Line Provider and Presales Engineer: Provider: Dilshad Bingham Assist: Mary Dennis Attending: Jose Alfredo Riojas Indication for Procedure: Hypotension Procedure Details: A time-out was completed verifying correct patient, procedure, site, positioning , and special equipment if applicable. The patient was placed in a dependent position appropriate for central line placement based on the vein to be cannulated. The patients left neck was prepped and draped in sterile fashion. A triple lumen catheter was introduced into the the internal jugular vein under ultrasound guidance. The catheter was threaded smoothly over the guide wire and appropriate blood return was obtained. Each lumen of the catheter was evacuated of air and flushed with sterile saline. The catheter was then secured in place to the skin and a sterile dressing applied. Dr. Jose Alfredo Riojas was present for the entire procedure. Attending Statement The patient was seen and examined together with Dr. Bingham on 04/15 and I agree with the history, exam and plan as outlined in the note above. copies to: Jose Alfredo Riojas MD, Andrew R Apr 15, 2017 20:56 Jose Alfredo Riojas MD Apr 18, 2017 04:07
--- NOTE | 2017-04-15 21:26 | DRSVH ---
PROCEDURE: X-RAY CHEST ONE VIEW, PORTABLE ([id number]) INDICATIONS: 51 year-old male with central line placement. TECHNIQUE: One view of the chest was acquired. COMPARISON: [facility], CR, XR CHEST 1VW (PORTABLE), 04/15/2017, 11:33. [facility], CR, XR CHEST 1VW (PORTABLE), 04/14/2017, 3:16. [facility], CR, CHEST 1VW (PORTABL E), 02/23/2015, 4:53. FINDINGS: Surgical changes and devices: Left internal jugular central venous catheter is now present, with tip in the upper superior vena cava. Endotracheal tube and nasogastric tube remain in expected positions. Lungs and pleura: Bilateral ill-defined pulmonary nodules are not significantly changed. Small depend ent right pleural effusion is now present. No pneumothorax. Mediastinum: Mediastinal contours appear normal. Heart size is normal. Bones and chest wall: No suspicious bony lesions. Overlying soft tissues appear unremarkable. IMPRESSION: 1. Left internal jugular central venous catheter is in expected position. No pneumothorax. 2. New small dependent right pleural effusion is of uncertain etiology. 3. Findings suspicious for bilateral septic emboli as before. Dictated by: Portillo Zepeda M.D. on 04/15/2017 at 21:22 Approved by: Portillo Zepeda M.D. on 04/15/2017 at 21:23
[2017-04-15] MEDS ORDERED: Phenylephrine/NS-PF 100 mCg/mL 5 mL Syringe IVPUSH PRN (21:35)
[2017-04-15] MEDS: Phenylephrine Inj 20,000 MCG in 0.9% Sodium Chloride 250 ML IV SCH (21:47)
[2017-04-16] VITALS (7 sets, daily range): BP systolic 89–97; BP diastolic 52–61; PULSE 83–89; RESP 16; O2SAT 97–98
[2017-04-16] MEDS: 0.9% Sodium Chloride 1,000 ML IV SCH ×2 (01:23→09:21)
[2017-04-16] MEDS: Chlorhexidine 0.12% 15 mL Oral Solution MT SCH ×4 (01:23→12:31)
[2017-04-16] MEDS: Heparin 5,000 Unit/mL Inj SUBQ SCH ×2 (01:24→09:19)
[2017-04-16] MEDS ORDERED: Cisatracurium Inj 200,000 MCG in 0.9% Sodium Chloride-Pha MIX 100 ML IV SCH (02:50)
[2017-04-16] MEDS: Esmolol 2,500 mg/250 mL NS 2,500,000 MCG in IV Premix 1 EACH IV SCH ×3 (02:57→15:21)
[2017-04-16] MEDS: Piperacillin-Tazo 3.375 Gm Inj 3.375 GM in Dextrose 5% Minibag Plus 50 ML IV SCH ×2 (03:05→11:50)
[2017-04-16 03:24] LABS: BASOPHILS % (AUTO) 0.2 % (0-3); EOSINOPHILS % (AUTO) 0.3 % (0-5); MONOCYTES % (AUTO) 6.2 % (4-12); Mean Corpuscular Hemoglobin 26.9 pg (27.0-35.0); Mean Corpuscular Volume 81.2 fL (81-100); NEUTROPHILS % (AUTO) 86.6 % (40-74); Platelet Count 237 bil/L (150-400)
[2017-04-16] MEDS: Vancomycin Inj 1,250 MG in 0.9% Sodium Chloride 250 ML IV SCH ×2 (03:47→12:23)
--- NOTE | 2017-04-16 04:25 | ABG ---
DateTimeAnalyzed 04:19:00 -_ pH ____7.244 - 7.350 7.450 pCO2 ___50.5__ -mmHg 35.0 45.0 pO2 110 -mmHg 69.0 116 HCO3- ___21.1__ -mmol/L 22.0 26.0 ABE ___-5.5__ -mmol/L -2.0 2.0 tHb ____8.2__ -g/dL O2Hb ___95.7__ -% COHb ____0.5__ -% MetHb ____0.9__ -% sO2 ___97.1__ -% 25.0 FIO2 ___40.0__ -% PRVC 500 - PEEP ____5.0__ -cmH2O Set_RR ___16.0__ -b/min Drawn By blf - Date/Time Notified____ 04:25:00 -_ Spontaneous_RR ___16.0__ -b/min Oxygen Device 1 VENTILATOR - Notified By blf - Notified Whom ANJEL ROACH RN - B 764 -mmHg tO2 ___11.2__ -Vol% Zeke test _Positive -
--- NOTE | 2017-04-16 04:43 | NUR ---
Central Line Placement/Phenylephrine gtt/Vent Changes Central Line placed by night MD team due to patient's progressing hypotension. Left triple IJ placed and CXR verified placement and okay to use by Dr. Dennis. Phenylephrine gtt started at 0.5mcg/kg/minute based on [place] body weight of 80kg with good effect. Order obtained due to patient retaining CO2 and acidosis. RR increased from 16 to 20. Restraints DC'ed at 0200 as patient is paralyzed on Nimbex gtt.
[2017-04-16] MEDS: Phenylephrine Inj 20,000 MCG in 0.9% Sodium Chloride 250 ML IV SCH (05:23)
[2017-04-16] MEDS: Midazolam Inj 100 MG in IV Premix 1 EACH IV SCH (05:38)
[2017-04-16] MEDS: fentaNYL 2,500 mCg/250 mL 2,500 MCG in IV Premix 1 EACH IV PRN (07:31)
[2017-04-16] MEDS: Morphine ER 15 mg (MS Contin) Tablet PO SCH (08:30)
[2017-04-16] MEDS ORDERED: Clindamycin Inj 900 MG in IV Premix 1 EACH IV SCH (08:30)
[2017-04-16] MEDS: Sodium Chloride LOK Flush 10 mL Syringe IVFLUSH SCH (08:30)
[2017-04-16] MEDS: Vancomycin Dose per Pharmacist XX SCH (08:30)
[2017-04-16] MEDS: Famotidine Inj 20 MG in IV Premix 1 EACH IV SCH (09:19)
--- NOTE | 2017-04-16 09:30 | CONS ---
[address] [address] CONSULTATION REPORT PATIENT: BERNY YOUNG : 1965 MR#: [id number] ADMIT: 04/11/2017 JOB ID: [id number] DATE OF SERVICE: 04/16/[address] Jabier Al for this timely consult. REASON FOR CONSULTATION: High-grade polymicrobial bacteremia, sepsis and ventilatory dependent respiratory failure in an IV drug user. HISTORY OF PRESENT ILLNESS: The patient is a 51-year-old gentleman with longstanding meth and opiate issues. He injects the drugs by the intravenous route and has denied other examiners using it by the IM route. He also has underlying hep C and a history of recurrent soft tissue infections. 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 I was contacted while on vacation last week about this patient as blood cultures had yielded both MRSA and what appeared to be a bacillus organism. I recommended the bacillus organism be sent to [facility] for a speciation as well as susceptibilities as we could not do them here, and the patient was started on broad-spectrum antibiotics. Over his 5-1/2 days here in the hospital, the patient has had a jeremy course in that he has required intubation and is currently still intubated in the ICU with what is felt to be possible endocarditis with septic emboli. This morning, I am a bit hampered in my ability in obtaining a history from the patient as he is sedated and intubated at this point. I did discuss the case in person, however, with the respiratory therapy as well as the patient's daughter and the primary team caring for the patient. PAST MEDICAL HISTORY: 1. History of opiate and methamphetamine use by the IV route. 2. Hepatitis C. 3. Recurrent soft tissue infections. 4. History of MRSA. 5. History of depression. SOCIAL HISTORY: The patient is an ongoing IV meth and heroin user. He smokes cigarettes on a regular basis and uses marijuana but does not use alcohol. His daughter tells me he does not work. FAMILY HISTORY: Cannot be obtained from this intubated, sedated gentleman. REVIEW OF SYSTEMS: Cannot be obtained from this intubated, sedated, critically ill gentleman. PHYSICAL EXAMINATION: Reveals a gentleman who is lying supine, intubated in the ICU. He is not receiving vasopressor agents. He has a central line in his left neck. His current vital signs include temp 37.7. His last fever was 48 hours ago when he was 39.5. His pulse is 89 and regular. Respiratory rate 16, blood pressure 93/59, though not on vasopressors. He is saturating well on 40% on the ventilator. I discussed this case with respiratory therapy. His eyes are about 3 mm and equal, and no conjunctivitis or scleral icterus is noted. There is no temporal wasting. The nose appears normal. Oral endotracheal tube and orogastric tube are in good position. His neck is without notable adenopathy or JVD this morning. He has a left IJ which appears to be in good position without inflammation. No adenopathy is noted in the supraclavicular or cervical area. His lungs are notable for scattered rales throughout both, actually relatively clear as these abnormalities in his lungs are fairly focal. Cardiac tones regular rate and rhythm without appreciable murmur which is difficult to say for sure there is no murmur as the ventilator is quite loud. The abdomen is soft and nontender. Liver edge extends 3 cm below the right costal margin. I do not appreciate any ascites. There is no inguinal adenopathy. Normal penis and scrotum, with a Torres present. Lower extremities are well perfused and without cellulitis. Note that the patient is said to have a right gluteal phlegmon but because of the intubated and sedated situation, I did not roll him over myself, though I plan to look later at that area. Neurologic exam cannot be done as the patient is currently sedated and not moving. There is no evidence for skin rash or skin breakdown anywhere that I can see, though of course, I could not look at his gluteal area at this time, though I plan to later today. All of his extremities are well perfused. LABORATORIES: Include a white count which was 36,000 when he came in five days ago. It has not changed, as it is 37,000 today. His platelet count 237,000. Diff shows 87% segs. Creatinine 1.05. His LFTs are normal except for an alk phos at 318. Albumin is 1.7. Procalcitonin 3.37. It was 3 when he came in, so again that has not changed either. Serologies include hep C positive. Viral load is pending. HIV negative. Blood cultures are of great interest. The blood cultures on admission grew MRSA in multiple bottles. Also noted in multiple bottles note that the MRSA grew in 5/5 bottles whereas bacillus grew in 4/5. Followup negative blood cultures have not been obtained in the last five days. A culture of the right elbow also was done and showed the same MRSA. Sputum is pending. IMAGING: Imaging was reviewed. Imaging shows a right-sided focal infiltrate with pleural effusion. In comparison to prior films, there was much more discrete embolic type lesions on the right side in prior films, and I have personally reviewed these. The radiologist interprets these as probable bilateral septic emboli, though much more notable on the right than the left. IMPRESSION: This is an extremely difficult and disconcerting case of a gentleman who was admitted 5-1/2 days ago with sepsis secondary to what was thought to be a right gluteal phlegmon. His course throughout the hospital stay has been one of actual decline as he has required intubation subsequent to his admission, though he is not currently on vasopressor agents. His elevated white count and procalcitonin have really not changed since admission. He is known to be infected in his blood with both the bacillus organism as well as methicillin-resistant Staphylococcus aureus (MRSA). We do not have any followup blood cultures at this point. A transthoracic echo showed no major abnormalities. My main concerns at this point are that it is extremely likely that he has at least right-sided endocarditis based on the septic pulmonary emboli seen on the chest x-ray. One particular concern here is that we do not have any adequate therapy for the bacillus in his blood. The susceptibilities which I just obtained from the [facility] shows it is resistant to penicillin with an CRISSY to vancomycin of 4, which is very poor. Bacillus may or may not respond to beta-lactam beta lactamase combination agents. Probably the best drug here would be clindamycin as the CRISSY is 0.52 to that organism. RECOMMENDATIONS: 1. Will discontinue the Zosyn and add high-dose clindamycin. 2. BO will be obtained later today. 3. Follow up blood cultures are needed today. 4. Will continue to very closely follow this complex patient with you. This case discussed with the entire ICU team during rounds today. ABEBA
--- NOTE | 2017-04-16 10:49 | DRSVH ---
[facility] [address] [place] [id number] Echocardiogram Report Name: BERNY YOUNG GStudy Date: 04/16/2017 Height: 7 3 in Hospital Exam Location: IS Weight: 2 04 lb Gender: Male BSA: 2.2 m2 : 1965 Age: 51 yrs BP: 91/58 mmHg Reason For Study: Endocarditis Performed By: Johanne Doe Referring Physician: VINNY CEJA Interpretation Summary Ther is a large sessile vegetation that measures 1.7cm in diameter seen at the base of the posterior leaflet at the posteriolaterial commissure as well as a smaller but very mobile vegetation attached to the tip of the posterior leaflet that prolapses back and forth across the plane of the mitral valve during systole and diastole. This is associated with two jets of mitral insuffiency that likely represent perforation at the base of the mitral valve in the area of the large sessile vegetation. The degree of mitral insuffiency is likely moderate and not severe. The aortic valve is normal in structure and function. There is no aortic valvular vegetation. There is no tricuspid valve vegetation. There is no vegetation on the pulmonic valve. The left ventricle is normal in size, wall thickness, and systolic function without any focal wall motion abnormalities. The right ventricle is normal in size, thickness and function. There is no pericardial effusion. There is a moderate left-sided pleural effusion. No other echocardiographic abnormalities seen. Hospitalist is notified of findings and the recommendation is for the patient to be transferred for urgent mitral valve surgery. Procedure: The transesophageal probe was passed without difficulty. There were no complications. Left Ventricle: The left ventricle is normal in size, wall thickness, and systolic function without any focal wall motion abnormalities. Right Ventricle: The right ventricle is normal in size, thickness and function. Atria: The left atrial size is normal. The right atrium is normal in size. The interatrial septum is intact with no evidence for an atrial septal defect. Mitral Valve: Ther is a large sessile vegetation that measures 1.7cm in diameter seen at the base of the posterior leaflet at the posteriolaterial commissure as well as a smaller but very mobile vegetation attached to the tip of the posterior leaflet that prolapses back and forth across the plane of the mitral valve during systole and diastole. This is associated with two jets of mitral insuffiency that likely represent perforation at the base of the mitral valve in the area of the large sessile vegetation. The degree of mitral insuffiency is likely moderate and not severe. Aortic Valve: The aortic valve is normal in structure and function. There is no aortic valvular vegetation. Tricuspid Valve: The tricuspid valve is normal in structure and function. There is no tricuspid valve vegetation. Pulmonic Valve: The pulmonic valve leaflets are thin and pliable; valve motion is normal. There is no vegetation on the pulmonic valve. Pericardium/ Pleura: There is no pericardial effusion. There is a moderate left-sided pleural effusion. Reading Physician:10:47 AM
--- NOTE | 2017-04-16 10:53 | NUR ---
NUTRITION FOLLOW UP: ASSESS: 51 YO M admitted to CCU for right gluteal abscess and MRSA bacteremia. Pt remains intubated; NPO X 3 days. Pt s/p BO today, pt will likely require transfer per rounds. Pt agitated per notes. PMHx: Hepatitis C, IV meth and heroin abuse, cellulitis, MRSA, opiate use, smoking. DIET: NPO X 3 days. Previous PO intake on general diet bites-75%. LABS: Reviewed. BUN 26, Glu 118, Ca 7.8, Alk Phos 318, Alb 1.7 MEDICATIONS: Reviewed. Nimbex, Pressor, Fentanyl, Senna. GI: No BM noted. SKIN: Wound eval pending. ANTHROPOMETRICS: Current Wt: 92.7 kg, BMI: 27.0 kg/m2. Admit weight: 74 kg, IBW: 83.64 kg (92% IBW) ESTIMATED NEEDS (POSS. OSTEOMYELITIS, UNDERWEIGHT): Calories: 4437-4790 kcal/day (30-35 kcal/kg BW) Protein: 93-116 g/day (1.2-1.5 g/kg BW) Fluid: Approx. 2705 mL (35 mL/kg BW) NUTRITION DIAGNOSIS: 1) Inadequate oral intake related to inability to consume sufficient energy, as evidenced by NPO/vent status.---PERSISTS. 2) Increased nutrient needs related to potential osteomyelitis, underweight status with no recent history of weight loss, as evidenced by 83.64% IBW.---PERSISTS. INTERVENTION: 1) Enteral feeding recommendation follows, unsigned orders in chart for provider authorization. Recommend Jevity 1.5 initiated at trophic rate 10 mL/hr x 8 hr. Once tolerance established, recommend advance 10 ml every 4 hr. to goal rate 75 mL/hr. Flush dose 40 mL H2O every 4 hr. Enteral feeding at goal will provide 2475 kcal, 106 g protein, which will meet approx. 100% patient's nutrient needs. MONITOR/EVALUATE: NPO/vent status, labs, enteral feeding initiation, POC, GI/nutrition status. Follow per high nutrition risk guidelines.
--- NOTE | 2017-04-16 10:57 | PCM.DC.MED ---
Discharge Summary Date of Service Apr 16, 2017 Dates of Hospitalization Date of Hospital Admission Apr 11, 2017 at 09:42 Date of Discharge: Apr 16, 2017 Providers: Admitting Physician: Lisa Downey MD Primary Care Physician: Ashleigh Arizmendi MD Attending Physician: Teofilo Al MD Diagnosis at Time of Discharge Diagnosis at Time of Discharge MRSA endocarditis; Mitral valve thrombus; MRSA and bacillus bacteremia; Pneumonia, septic pulmonary emboli; Soft tissue infection, right gluteal muscle; Acute respiratory failure, on ventilator; Hypotension, on vasopressor; Atrial fibrillation with rapid ventricular response, on esmolol; Intravenous drug use, methamphetamine and heroin. Consultations Infectious disease, Dr. Juan Shahid "IMPRESSION: This is an extremely difficult and disconcerting case of a gentleman who was admitted 5-1/2 days ago with sepsis secondary to what was thought to be a right gluteal phlegmon. His course throughout the hospital stay has been one of actual decline as he has required intubation subsequent to his admission, though he is not currently on vasopressor agents. His elevated white count and procalcitonin have really not changed since admission. He is known to be infected in his blood with both the bacillus organism as well as methicillin-resistant Staphylococcus aureus (MRSA). We do not have any followup blood cultures at this point, nor do we have a . A transesophageal echo showed no gross abnormalities. My main concerns at this point are that it is extremely likely that he has at least right-sided endocarditis based on the septic pulmonary emboli seen on the chest x-ray. One particular concern here is that we do not have any adequate therapy for the bacillus in his blood. The susceptibilities which I just obtained from the [facility] shows it is resistant to penicillin with an CRISSY to vancomycin of 4, which is very poor. Bacillus may or may not respond to beta-lactam beta lactamase combination agents. Probably the best drug here would be clindamycin as the CRISSY is 0.52 to that organism. RECOMMENDATIONS: 1. Will discontinue the Zosyn and add high-dose clindamycin. 2. BO will be obtained later today. 3. Follow up blood cultures are needed today. 4. Will continue to very closely follow this complex patient with you. This case discussed with the entire ICU team during rounds today." Juan Shahid MD 04/16/17 0868 Pulmonology, Dr. Gopal Burger . Procedures XRay, CTs & MRIs PROCEDURE: CT ABDOMEN AND PELVIS WITH CONTRAST ([id number]) IMPRESSION: 1. Bilateral perinephric stranding suggesting pyelonephritis. No renal stone or hydronephrosis. 2. Mild stranding in the area of the tail of the pancreas, which may be secondary to spread of inflammation/infection from the left kidney or focal pancreatitis. 3. Small right pleural effusion. 4. Trace pericardial effusion. 5. The right gluteus muscle is enlarged and demonstrates low attenuation with somewhat heterogeneous enhancement suggesting myositis. 6. Subcutaneous edema and fluid over right gluteus muscle. There is a small fluid collection over the right greater trochanter which could represent septic greater trochanteric bursal fluid. Ultrasound-guided fluid aspiration may be performed if clinically indicated. 7. Mild hepatomegaly. Dictated by: Amanda Méndez M.D. on 04/11/2017 at 8:31 PROCEDURE: US EXTREMITY SONOGRAM LIMITED ([id number]) IMPRESSION: No drainable fluid collection is identified. There is diffuse soft tissue edema. Dictated by: Amanda Méndez M.D. on 04/11/2017 at 11:39 PROCEDURE: MRI PELVIS WITH AND WITHOUT CONTRAST ([id number]) IMPRESSION 1. Abnormal edema and enhancement of the right gluteus missy muscle consistent with myositis with a large multiloculated intramuscular abscess collection demonstrated. Given the numerous internal loculations, percutaneous aspiration would likely not be effective. 2. No definite evidence of osteomyelitis or septic arthritis. 3. Small amount of intraperitoneal free fluid in the pelvis is nonspecific. Dictated by: Bogdan Moya M.D. on 04/13/2017 at 17:09 PROCEDURE: CT ANGIO CHEST PULMONARY EMBOLISM ([id number]) IMPRESSION: 1. No central pulmonary embolism, with evaluation of distal subsegmental branches limited by motion artifact. 2. Multiple bilateral small areas of consolidation peripherally highly suspicious for septic emboli. The differential includes atypical infections or possible inflammatory processes. 3. Small bilateral pleural effusions with associated compressive atelectasis. 4. Enlargement of the pulmonary arteries suggesting pulmonary arterial hypertension. 5. Mild enlargement of mediastinal lymph nodes are likely reactive. Dictated by: Bogdan Moya M.D. on 04/12/2017 at 18:41 PROCEDURE: X-RAY CHEST ONE VIEW, PORTABLE ([id number]) IMPRESSION: Endotracheal tube with the tip projecting approximately 4 cm above the wilver. Redemonstration of bilateral multifocal consolidative opacities (probably similar to recent chest CT dated 04/12/17; please see report) Dictated by: Poli Vasquez M.D. on 04/14/2017 at 8:22 . Cardiac Echo Impression Transthoracic Echocardiogram Report Name: BERNY YOUNG Study Date 04/12/2017 Interpretation Summary The patient was in atrial fibrillation with rapid ventricular response during the exam with a heart rate exceeding 100 bpm. The heart rate ranged between 118-149 bpm during the study. The ejection fraction is estimated to be 55-60%. The right ventricle is grossly normal size. Right ventricular systolic function is at the lower limits of normal. There is mild tricuspid regurgitation. The right ventricular systolic pressure is estimated at 28 mmHg assuming a right atrial pressure of 8 mm Hg. Transesophageal Echocardiogram Report Name: BERNY YOUNG Study Date: 04/16/2017 Referring Physician: TYRESE CEJA Interpretation Summary Ther is a large sessile vegetation that measures 1.7cm in diameter seen at the base of the posterior leaflet at the posteriolaterial commissure as well as a smaller but very mobile vegetation attached to the tip of the posterior leaflet that prolapses back and forth across the plane of the mitral valve during systole and diastole. This is associated with two jets of mitral insuffiency that likely represent perforation at the base of the mitral valve in the area of the large sessile vegetation. The degree of mitral insuffiency is likely moderate and not severe. The aortic valve is normal in structure and function. There is no aortic valvular vegetation. There is no tricuspid valve vegetation. There is no vegetation on the pulmonic valve. The left ventricle is normal in size, wall thickness, and systolic function without any focal wall motion abnormalities. The right ventricle is normal in size, thickness and function. There is no pericardial effusion. There is a moderate left-sided pleural effusion. No other echocardiographic abnormalities seen. Hospitalist is notified of findings and the recommendation is for the patient to be transferred for urgent mitral valve surgery. . Brief History History of Present Illness (per admission note): That 51-year-old male who has a history of hepatitis C, cellulitis, MRSA and is IV methamphetamine user who presents to the emergency room with progressive pain and swelling over the right gluteal area over the past several days. He denies any fevers chills. Denies any chest pain, shortness of breath. Patient denies injecting into his buttock area. His evaluation in the emergency room shows a significantly elevated white count and tachycardia. He also has a history of opioid dependence. . Hospital Course Sepsis MRSA and bacillus Bacteremia, acute, present on admission. Active. Right gluteal phlegmon without discrete pus for drainage. Four sets of blood cultures (04/11 and 04/13) all positive for MRSA, 3 of 4 positive for bacillus. Probably septic embolic pneumonia. BO confirms endocarditis large mitral valve vegetation. Sepsis criteria is met by significantly elevated white count 36.4, lactic acid 4.3 and tachycardia HR 113, temperature 39.5 within 24 hours of admission. Procalcitonin 6.24. Transthoracic echocardiogram unremarkable. Persistent fevers. Spine and pelvic MRI due to low back pain show no foci of osteomyelitis. - Vancomycin and Zosyn - Cardiology and Infectious Disease consult Acute respiratory failure, not present on admission. Respiratory distress manifested as tachypnea with no real hypoxia or hypercarbia on 04/13 unclear cause other than right pulmonary infiltrates. He did not tolerate BiPAP and was subsequently intubated. He has required high- grade sedation to tolerate ventilator. Sedation has contributed to hypotension requiring pressor. Moderate white-vega secretions noted on 04/16. - Mechanical ventilation currently FiO2 40-50%; requiring high-dose fentanyl, midazolam and cisatricurium - Chest x-ray with relatively stable right-sided multifocal infiltrates typical of septic emboli RVR A. fib, acute, not present on admission. Heart rate has responded to nadege blockade. Converted to sinus rhythm on 04/16. - Diltiazem ggt. - Esmolol as needed Cardiogenic shock, not present on admission. Blood pressure drops since high level sedation required for ventilator along with nadege blockade for rapid A. fib. - Currently receiving phenylephrine drip Acute diastolic congestive heart failure, present on admission. Due to rapid atrial fibrillation. ProBNP is 8963. He has not received IV furosemide. Fluid balance markedly positive but patient is hypotensive. - Rate control of atrial fibrillation - Hold on diuresis while patient is hypotension and possibly septic, unless evidence of overt fluid overload Renal, fluids and electrolytes. Potassium and magnesium have been normal. Creatinine was 0.84 on admission, rising to 1.05 and 04/16 in the setting of hypotension and vasopressors. Body weight was 74 kg on admission, rising to 92.7 on 04/16. Developed significant peripheral edema. ProBNP was [address] in [address] Producing urine output average 0.35-0.7 mL per KG per hour. Elevated troponin, present on admission. Patient had no chest pain. EKG is unremarkable. Serial troponins of 0.06, 0.073, 0.082 do not suggest acute ischemic event. Likely cardiac strain related to A. fib RVR. Initially treated with IV heparin which has been discontinued. - No workup for ischemic coronary disease at this time Polysubstance drug abuse, chronic, present on admission. Active. He has had no Monitor for withdrawal symptoms. Patient reports last heroin use 1 month prior to admission. Reports more methamphetamine, intravenous not intramuscular - Continue home opioid analgesic medication regimen. Replace with IV fentanyl while on ventilator - director outpatient services consult for chemical dependence. Hepatitis C virus, chronic. HCV antibody positive. There are no quantitation pending. Transaminases unremarkable - Follow clinically DVT prophylaxis - SCDs and heparin CODE STATUS - Full code Acetaminophen for mild pain when necessary. Bowel regimen Senna and MiraLAX scheduled and PRN. Zofran when necessary for nausea and vomiting. High-risk medications: IV Dilaudid. Vancomycin Disposition: Discussed case with Dr. John Ortiz. Transfer to [facility] to intensive care unit, CT surgeon Dr. John Ortiz accepting. Exam Vital Signs (Last) Date Time Temp Pulse Resp B/P Pulse Ox O2 Delivery O2 Flow Rate FiO2 04/16/17 08:24 86 89/52 97 40 04/16/17 03:29 37.7 16 Mechanical Ventilator 04/13/17 20:22 3.00 Exam General: Middle-age man sedated on ventilator HEENT: sclerae anicteric, Neck: IJ triple-lumen cath in place Chest: Generally clear to auscultation Cardiac: S1S2, II/ midsystolic ejection murmur Abdomen: BS normal, nondistended; Torres in place Extremities: 2+ edema Neuro: Sedated, paralyzed, eyes conjugate, pupils 2 mm Test 04/11/17 06:55 04/11/17 09:01 04/11/17 10:16 04/11/17 18:10 Erythrocyte Sedimentation Rate 48mm/hr (0-15) C-Reactive Protein 32.1mg/dL (0.0-0.5) Miscellaneous Test see comment Urine Color Straw (YELLOW) Urine Appearance Hazy (CLEAR,HAZY) Urine pH 6.5 (5.0-8.0) Urine Specific [place] 1.005 (1.003-1.035) Urine Protein Tracemg/dL (NEG,TRACE) Urine Glucose (UA) Negativemg/dL (NEGATIVE) Urine Ketones Negativemg/dL (NEGATIVE) Urine Occult Blood Trace (NEGATIVE) Urine Nitrite Negative (NEGATIVE) Urine Bilirubin Negative (NEGATIVE) Urine Urobilinogen Normalmg/dL (NORMAL) Urine Leukocyte Esterase Negative (NEGATIVE) Urine RBC 3-10/hpf (0-2) Urine WBC 0-5/hpf (0-5) Urine Epithelial Cells Occasional/hpf (NONE-MOD) Urine Crystals Amorphous urates (NONE Urine Bacteria Few/hpf (NONE-FEW) Urine Hyaline Casts None/lpf (NONE) Urine Granular Casts None seen (NONE SEEN) Urine Waxy Casts None seen (NONE SEEN) Urine Red Blood Cell Casts None seen (NONE SEEN) Urine White Blood Cell Casts None seen (NONE SEEN) Urine Mucus None seen (None Seen) Urine Trichomonas None seen (NONE SEEN) Urine Yeast None (NONE SEEN) Urinalysis Comment None Urine Culture Reflexed Not indicated Magnesium Level 1.8mg/dL (1.6-2.6) Test 04/12/17 11:35 04/12/17 21:28 04/13/17 04:10 04/13/17 19:05 Hepatitis B Surface Antigen Negative (Negative) Hepatitis B Surface Antibody Non reactive (.) Hepatitis B Core Total Antibody Negative (Negative) Hepatitis C Antibody >11.0s/co ratio Hepatitis C Antibody Comment Comment (.) HIV (1&2) Ag and Ab, 4th Generation Non reactive (Non Reactive) Troponin T 0.082ug/L (0.0-0.011) Thyroid Stimulating Hormone (TSH) 0.245uIU/mL (0.450-4.500) Free Thyroxine 1.55ng/dL (0.82-1.77) Vancomycin Level Trough 17.8mcg/mL Test 04/14/17 02:10 04/14/17 03:05 04/14/17 10:55 04/16/17 03:00 Band Neutrophils % 2% (1-5) Pro-B-Type Natriuretic Peptide 8963pg/mL (0-121) Prealbumin 3mg/dL (20-40) Lactic Acid Level 1.8mmol/L (0.4-2.0) Activated Partial Thromboplast Time 45.0sec (22.8-33.0) White Blood Count 37.2th/mm3 (3.8-10.1) Red Blood Count 2.08mil/mm3 (4.40-5.80) Hemoglobin 8.3g/dL (13.8-17.2) Hematocrit 25.0% (41.0-50.0) Mean Corpuscular Volume 81.2fL (81-100) Mean Corpuscular Hemoglobin 26.9pg (27.0-35.0) Mean Corpuscular Hemoglobin Concent 33.2% (32.0-37.0) Red Cell Distribution Width 15.6% (12.3-15.4) Platelet Count 237bil/L (150-400) Neutrophils (%) (Auto) 86.6% (40-74) Lymphocytes (%) (Auto) 4.4% (14-46) Monocytes (%) (Auto) 6.2% (4-12) Eosinophils (%) (Auto) 0.3% (0-5) Basophils (%) (Auto) 0.2% (0-3) Sodium Level 143mEq/L (134-144) Potassium Level 4.6mEq/L (3.5-5.2) Chloride Level 112mEq/L (97-108) Carbon Dioxide Level 20mmol/L (18-29) Blood Urea Nitrogen 26mg/dL (6-24) Creatinine 1.05mg/dL (0.76-1.27) Estimat Glomerular Filtration Rate 79mL/min (>59) Glucose Level 118mg/dL (60-99) Calcium Level 7.8mg/dL (8.5-10.1) Total Bilirubin 0.7mg/dL (0.0-1.2) Aspartate Amino Transf (AST/SGOT) 29U/L (0-50) Alanine Aminotransferase (ALT/SGPT) 16U/L (0-44) Alkaline Phosphatase 318U/L (25-150) Total Protein 5.7g/dL (6.4-8.4) Albumin 1.7g/dL (3.4-5.0) Procalcitonin 3.37ng/mL (0.00-0.08) Microbiology Results Specimen: [id number] Collected: 04/11/17 Status: ROSLYN Renohemi#: [id number] Received: 04/11/17 Source: BLOOD Sp Desc : AER Subm Dr: Phillip Farah DO Ordered: BC Comments: Collected by Nurse/Unit? Y/N N Procedure Result Verified Site Microbiology CRISSY CULTURE BLOOD Final 04/13/17-0740 Organism 1 METHICILLIN RESISTANT S AUREUS GRAM STAIN RESULT GRAM POSITIVE COCCI ?STAPH BC BOTTLE Isolated from Aerobic Bottle of Set Drawn DATE CALLED: 04/11/17 TIME CALLED: 2100 CALLED BY: BINTA FLOOR/DOCTOR: JIM/BART [place] BC READ BACK Y TYPE OF DRAW NURSE COLLLECT TYPE NOT SPECIFIED TIME OF POSITIVITY 2030 METHICILLIN RESISTANT S AUREUS Resistance of staphylococci to OXACILLIN predicts resistance to (a) other beta-lactamase stable penicillins such as cloxacillin and dicloxacillin (b)B-lactam/B-lactamase inhibitor combinations such as augmentin and unasyn, (c)cephems such as Cephalexim and cefuroxime and (d)carbapenems such as imipenem and meropenem.(CLSI 2011 M100 S21) ISOLATED FROM FIVE OF FIVE BOTTLES COLLECTED 04/11 1. METHICILLIN RESISTANT S AUREUS M.I.C Interp --------- ------ * CEFAZOLIN R * DAPTOMYCIN 0.5 S * CLINDAMYCIN >=8 R * ERYTHROMYCIN >=8 R * LINEZOLID 2 S * OXACILLIN CRISSY >=4 R * RIFAMPIN <=0.5 S CEFTAROLINE 1.0 S Specimen: [id number] Collected: 04/11/17 Received: 04/11/17 (Continued) Procedure Result Verified Site CRISSY CULTURE BLOOD Preliminary (continued) 04/13/17-845 ISOLATED FROM FIVE OF FIVE BOTTLES COLLECTED 04/11 BACILLUS SPECIES NOT ANTHRAX SPECIATION OF BACILLUS SP AND SUSCEPTIBLITIES SENT TO PER DR SHAHID ISOLATED FROM FOUR OF FIVE BOTTLES COLLECTED 04/11 . Discharge Medications As needed Hydrocodone-Acetaminophen 5-325 mg (Hydrocodone-Acetaminophen 5-325 mg) 1 Each Tablet 1-2 TABLET PO Q4H PRN PRN For Pain Prescribed by: HALEY BROWNLEE MD Followup Plan Disposition: Transfer Time spent 60 minutes copies to: Ashleigh Arizmendi MD, Jeffrey W MD Apr 16, 2017 10:57
[2017-04-16] MEDS ORDERED: Vancomycin Serum Trough XX ONE (11:00)
--- NOTE | 2017-04-16 13:53 | NUR ---
Patient seen by CWON RN for Pressure Ulcer Prevention Protocol. No open areas found, heels without bogginess and appropriately floated when CWON entered room. L posterior elbow slightly erythemic and patient's primary RN elevated it onto two pillows. Scrotum significantly edematous but no open areas or drainage noted. No additional precautions required at this time, staff following pressure ulcer prevention protocol. Patient will not be followed by CWON unless specific wounds are found.
--- NOTE | 2017-04-16 14:02 | PCM.PHAPRO ---
Progress Right-sided buttock pain Vancomycin Dosing o/ Vanc Cpmin 28mcg/mL SCr from 0.84 to 1.05 over past 3-4 days Concomitant pip/tazo use a/ Possible Vanc/Zosyn nephrotoxicity p/ Stop zosyn, continue vanc for MRSA bacteremia Redoce vanc based on levels and follow. Reginaldo Flores S Pharm D Apr 16, 2017 14:02
--- NOTE | 2017-04-16 14:25 | NUR ---
Transfer Pt had a BO by today at 1000 with new orders to transfer to [address] Report given to Marion, RN at # . Dc'd OG per so he could scope. Replaced OG with 2nd nurse placement check with Jayne Guaman RN. Skin check completed with wound care, no signs of open wounds on back side. Vent 40% 5/20/500 SpO2 99%. Transferring with Nimbex, Esmolol,Versed,Fentanyl, Phenylephrine and NS gtt. Vanco trough 28.6, Vanco gtt stopped. Sister, mom and daughter at bedside and explain prognosis. is the POA whom pt states is under the influence of meth and heroine and is not able to consent transfer at this time. Leaf Coverer notified. Positive for MRSA, contact precautions taken. Patent 3L left IV and x3 peripheral IV's. Torres draining freely. Swollen scrotal area elevated with pillow case. No BM since admit. All personal belongings packed up and given to family.
[2017-04-16] MEDS ORDERED: Phenylephrine Inj 20,000 MCG in 0.9% Sodium Chloride 248 ML IV SCH (14:40)
[2017-04-16] MEDS ORDERED: Cisatracurium Inj 200,000 MCG in 0.9% Sodium Chloride 100 ML, Pharmacy To Mix 1 EA IV ONE (14:40)
--- NOTE | 2017-04-16 16:13 | NUR ---
Transfer Pt left at 1550 with [place] transfer team. Report given to RN. KVNG jorge left with pt to be returned. Family informed pt going to [id number] with driving instructions. Vitals stable. Hvac Project Engineer and charge aware.
[2017-04-16] MEDS ORDERED: Vancomycin Inj 1,250 MG in 0.9% Sodium Chloride 250 ML IV SCH (20:30)
== END 2017-04-16 16:10 | disposition short-term general hospital (02) | DRG 871 ==
LOC: SED 06:08 → OBSVTOIN 09:42 → MPC 09:42 → PCC 04-12 20:55 → CCU 04-13 22:11
PROVIDERS: ADMIT Specialist; ATTEND Specialist
PROC: 5A1945Z Respiratory Ventilation, 24-96 Consecutive Hours (ICD-10-PCS; principal; 2017-04-14)
PROC: 0BH18EZ Insertion of Endotracheal Airway into Trachea, Via Natural or Artificial Opening Endoscopic (ICD-10-PCS; 2017-04-14)
PROC: 4A033R1 Measurement of Arterial Saturation, Peripheral, Percutaneous Approach (ICD-10-PCS; 2017-04-15)
PROC: 02HV33Z Insertion of Infusion Device into Superior Vena Cava, Percutaneous Approach (ICD-10-PCS; 2017-04-15)
PROC: B246ZZ4 Ultrasonography of Right and Left Heart, Transesophageal (ICD-10-PCS; 2017-04-16)
DX: A41.02 Sepsis due to Methicillin resistant Staphylococcus aureus (principal); J96.00 Acute respiratory failure, unspecified whether with hypoxia or hypercapnia; I50.31 Acute diastolic (congestive) heart failure; I33.9 Acute and subacute endocarditis, unspecified; I26.90 Septic pulmonary embolism without acute cor pulmonale; R65.21 Severe sepsis with septic shock; L03.317 Cellulitis of buttock; F11.20 Opioid dependence, uncomplicated; E46 Unspecified protein-calorie malnutrition; F10.239 Alcohol dependence with withdrawal, unspecified; F15.23 Other stimulant dependence with withdrawal; Z86.14 Personal history of Methicillin resistant Staphylococcus aureus infection; F17.200 Nicotine dependence, unspecified, uncomplicated; I48.91 Unspecified atrial fibrillation; Z86.19 Personal history of other infectious and parasitic diseases; F12.90 Cannabis use, unspecified, uncomplicated; Z68.27 Body mass index [BMI] 27.0-27.9, adult; I34.8 Other nonrheumatic mitral valve disorders